=== PATIENT | male | born 1960 | race Asian ===

== ENCOUNTER 2018-06-04 17:17 | Inpatient (IN) | payer OTHER ==
[2018-06-04] MEDS: ONDANSETRON 4 MG INJ IV (21:00)
[2018-06-04] MEDS: HYDROmorphONE 1 MG/ML SYG IV (21:00)
[2018-06-04] MEDS: SOD CHLORIDE 0.9% 1,000 ML IV (21:00)
[2018-06-04 21:20] LABS: ADD MAN DIFF? NO
[2018-06-04 21:21] LABS: BASOPHIL # 0.1 10^3/ul (0.0-0.1); BASOPHILS % 0.9 % (0.0-2.0); EOSINOPHILS # 0.6 10^3/ul (0.0-0.5); EOSINOPHILS % 4.1 % (0.0-7.0); HEMATOCRIT 41.6 % (42.0-52.0); HEMOGLOBIN 13.7 g/dl (14.0-18.0); LYMPHOCYTES # 1.8 10^3/ul (0.8-2.9); LYMPHOCYTES % 11.7 % (15.0-51.0); MEAN CORPUSCULAR HEMOGLOBIN 30.6 pg (29.0-33.0); MEAN CORPUSCULAR HGB CONC 32.9 g/dl (32.0-37.0); MEAN CORPUSCULAR VOLUME 93.1 fl (82.0-101.0); MEAN PLATELET VOLUME 9.6 fl (7.4-10.4); MONOCYTE # 1.2 10^3/ul (0.3-0.9); MONOCYTES % 8.3 % (0.0-11.0); NEUTROPHIL # 11.2 10^3/ul (1.6-7.5); NEUTROPHILS % 74.5 % (39.0-77.0); PLATELET COUNT 276 10^3/UL (140-415); RED BLOOD COUNT 4.47 10^6/ul (4.70-6.10); RED CELL DISTRIBUTION WIDTH 13.4 % (11.5-14.5)
[2018-06-04 21:25] LABS: INR 0.88; PT RATIO 0.9
[2018-06-04 21:26] LABS: PARTIAL THROMBOPLASTIN TIME 29.8 Sec (23.0-35.0)
[2018-06-04 21:28] LABS: ALANINE AMINOTRANSFERASE 9 IU/L (13-69); ALBUMIN 4.3 g/dl (3.3-4.9); ALBUMIN/GLOBULIN RATIO 1.16; ALKALINE PHOSPHATASE 85 IU/L (42-121); ANION GAP 9 (5-13); ASPARTATE AMINO TRANSFERASE 38 IU/L (15-46); BILIRUBIN,INDIRECT 0.2 mg/dl (0-1.1); BILIRUBIN,TOTAL 0.2 mg/dl (0.2-1.3); BLOOD UREA NITROGEN 13 mg/dl (7-20); CALCIUM 9.4 mg/dl (8.4-10.2); CARBON DIOXIDE 30 mmol/L (21-31); CHLORIDE 104 mmol/L (97-110); CREATININE 1.05 mg/dl (0.61-1.24); Estimated GFR > 60 mL/min (>60); GLUCOSE 86 mg/dl (70-220); LIPASE 119 U/L (23-300); POTASSIUM 4.1 mmol/L (3.5-5.1); SODIUM 143 mmol/L (135-144)
[2018-06-04 21:40] LABS: TROPONIN-I < 0.012 ng/ml (0.000-0.120)
[2018-06-04] MEDS: IBUPROFEN 600 MG TAB PO (22:31)
[2018-06-04] MEDS: CEFEPIME 1GM/50 ML (PMX) 50 ML IVPB (22:32)
[2018-06-04] MEDS: HYDROmorphONE 2 MG/ML SYG IV (22:52)
[2018-06-05] MEDS: ONDANSETRON 4 MG INJ IV ×2 (00:53→21:13)
[2018-06-05] MEDS ORDERED: ALBUTEROL/IPRATROPIUM (NEB) 3 ML AMP HHN (01:00)
[2018-06-05] MEDS ORDERED: HYDROCODONE/APAP (5/325) TAB PO (01:00)
[2018-06-05] MEDS ORDERED: ACETAMINOPHEN 325 MG TAB PO (01:00)
[2018-06-05] MEDS ORDERED: NACL 0.9% 3 ML SYG IV (01:00)
[2018-06-05] MEDS: hydrALAzine 20 MG INJ IV (01:48)
[2018-06-05] MEDS: HYDROmorphONE 0.2 MG/ML PCA IV (02:40)
[2018-06-05 07:36] LABS: ADD MAN DIFF? NO
[2018-06-05 07:43] LABS: BASOPHIL # 0.1 10^3/ul (0.0-0.1); BASOPHILS % 0.7 % (0.0-2.0); EOSINOPHILS # 0.1 10^3/ul (0.0-0.5); EOSINOPHILS % 0.4 % (0.0-7.0); HEMOGLOBIN 12.4 g/dl (14.0-18.0); LYMPHOCYTES # 1.3 10^3/ul (0.8-2.9); MEAN CORPUSCULAR HEMOGLOBIN 30.5 pg (29.0-33.0); MEAN CORPUSCULAR HGB CONC 32.6 g/dl (32.0-37.0); MEAN CORPUSCULAR VOLUME 93.4 fl (82.0-101.0); MEAN PLATELET VOLUME 9.4 fl (7.4-10.4); MONOCYTE # 1.1 10^3/ul (0.3-0.9); MONOCYTES % 6.3 % (0.0-11.0); NEUTROPHIL # 15.3 10^3/ul (1.6-7.5); NEUTROPHILS % 85.2 % (39.0-77.0); PLATELET COUNT 265 10^3/UL (140-415); RED BLOOD COUNT 4.07 10^6/ul (4.70-6.10); RED CELL DISTRIBUTION WIDTH 13.2 % (11.5-14.5)
[2018-06-05 08:01] LABS: ALANINE AMINOTRANSFERASE 10 IU/L (13-69); ALBUMIN 3.6 g/dl (3.3-4.9); ALKALINE PHOSPHATASE 74 IU/L (42-121); ANION GAP 6 (5-13); ASPARTATE AMINO TRANSFERASE 30 IU/L (15-46); BILIRUBIN,INDIRECT 0.4 mg/dl (0-1.1); BILIRUBIN,TOTAL 0.4 mg/dl (0.2-1.3); BLOOD UREA NITROGEN 11 mg/dl (7-20); CALCIUM 8.6 mg/dl (8.4-10.2); CARBON DIOXIDE 27 mmol/L (21-31); CHLORIDE 107 mmol/L (97-110); CREATININE 0.78 mg/dl (0.61-1.24); Estimated GFR > 60 mL/min (>60); GLUCOSE 101 mg/dl (70-220); MAGNESIUM 1.9 mg/dl (1.7-2.5); PHOSPHORUS 3.2 mg/dl (2.5-4.9); POTASSIUM 4.5 mmol/L (3.5-5.1); SODIUM 140 mmol/L (135-144); TOTAL PROTEIN 6.6 g/dl (6.1-8.1)
[2018-06-05] MEDS ORDERED: VANCOMYCIN IV PER PHARMACY XX (09:30)
[2018-06-05] MEDS: PIPER-TAZO 3.375 GM IV (PMX) 100 ML IVPB ×3 (11:24→23:44)
[2018-06-05] MEDS: VANCOMYCIN 1 GM 250 ML IVPB (12:10)
[2018-06-06] MEDS: VANCOMYCIN 750 MG (PMX) 250 ML IVPB ×2 (00:50→12:15)
[2018-06-06] MEDS: PIPER-TAZO 3.375 GM IV (PMX) 100 ML IVPB ×4 (05:39→23:53)
[2018-06-06 06:39] LABS: ADD MAN DIFF? NO
[2018-06-06 06:45] LABS: WHITE BLOOD COUNT 16.3 10^3/ul (4.8-10.8)
[2018-06-06 06:45] LABS: BASOPHIL # 0.1 10^3/ul (0.0-0.1); BASOPHILS % 0.8 % (0.0-2.0); EOSINOPHILS # 0.5 10^3/ul (0.0-0.5); EOSINOPHILS % 3.1 % (0.0-7.0); HEMATOCRIT 38.2 % (42.0-52.0); HEMOGLOBIN 12.5 g/dl (14.0-18.0); LYMPHOCYTES # 2.1 10^3/ul (0.8-2.9); LYMPHOCYTES % 13.2 % (15.0-51.0); MEAN CORPUSCULAR HEMOGLOBIN 30.5 pg (29.0-33.0); MEAN CORPUSCULAR HGB CONC 32.7 g/dl (32.0-37.0); MEAN CORPUSCULAR VOLUME 93.2 fl (82.0-101.0); MEAN PLATELET VOLUME 9.5 fl (7.4-10.4); MONOCYTE # 1.1 10^3/ul (0.3-0.9); MONOCYTES % 6.9 % (0.0-11.0); NEUTROPHIL # 12.3 10^3/ul (1.6-7.5); NEUTROPHILS % 75.6 % (39.0-77.0); PLATELET COUNT 271 10^3/UL (140-415); RED CELL DISTRIBUTION WIDTH 13.2 % (11.5-14.5)
[2018-06-06 07:04] LABS: ANION GAP 5 (5-13); BLOOD UREA NITROGEN 8 mg/dl (7-20); CALCIUM 8.5 mg/dl (8.4-10.2); CARBON DIOXIDE 31 mmol/L (21-31); CHLORIDE 106 mmol/L (97-110); CREATININE 0.84 mg/dl (0.61-1.24); Estimated GFR > 60 mL/min (>60); GLUCOSE 99 mg/dl (70-220); PHOSPHORUS 3.3 mg/dl (2.5-4.9); POTASSIUM 4.4 mmol/L (3.5-5.1); SODIUM 142 mmol/L (135-144)
[2018-06-06] MEDS: BARIUM SULF 2% 450 ML BTL (BERRY SMOOTHIE) PO (13:59)
[2018-06-06] MEDS: SOD CHLORIDE 0.9% 100 ML (15:31)
[2018-06-06] MEDS: IOHEXOL 300MG/ML 150 ML BTL (15:37)
[2018-06-06] MEDS: AMLODIPINE 5 MG TAB PO (17:30)
[2018-06-06] MEDS: hydrALAzine 20 MG INJ IV (18:32)
[2018-06-07 01:15] LABS: VANCOMYCIN,TROUGH 8.7 ug/ml (10.0-20.0)
[2018-06-07] MEDS: VANCOMYCIN 1 GM 250 ML IVPB (01:26)
[2018-06-07] MEDS: PIPER-TAZO 3.375 GM IV (PMX) 100 ML IVPB ×2 (05:36→11:49)
[2018-06-07] MEDS: AMLODIPINE 5 MG TAB PO (08:48)
[2018-06-07] MEDS: HYDROmorphONE 0.2 MG/ML PCA IV (10:21)
[2018-06-07] MEDS: hydrALAzine 20 MG INJ IV (21:15)
[2018-06-07] MEDS: AMLODIPINE 10 MG TAB PO (23:09)
[2018-06-08] MEDS: AMLODIPINE 5 MG TAB PO (09:57)
[2018-06-08] MEDS: LIDOCAINE 1% (MPF) 5 ML VIAL (19:28)
[2018-06-09] MEDS: HYDROmorphONE 0.2 MG/ML PCA IV (02:37)
[2018-06-09] MEDS: AMLODIPINE 5 MG TAB PO (08:50)
[2018-06-10] MEDS: HYDROCODONE/APAP (5/325) TAB PO ×2 (09:09→19:40)
[2018-06-10] MEDS: AMLODIPINE 5 MG TAB PO (09:09)
[2018-06-10] MEDS: morphine (ER) 15 MG TAB PO ×2 (15:48→21:59)
[2018-06-10] MEDS: IBUPROFEN 400 MG TAB PO (21:59)
[2018-06-11] MEDS: oxyCODONE 5 MG TAB PO (01:27)
[2018-06-11] MEDS: morphine (ER) 15 MG TAB PO (05:27)
[2018-06-11] MEDS: HYDROCODONE/APAP (5/325) TAB PO ×2 (07:03→18:19)
[2018-06-11] MEDS: IBUPROFEN 400 MG TAB PO ×3 (09:23→22:46)
[2018-06-11] MEDS: AMLODIPINE 5 MG TAB PO (09:24)
[2018-06-11] MEDS: morphine (ER) 30 MG TAB PO ×3 (12:44→22:46)
[2018-06-11] MEDS: hydrALAzine 20 MG INJ IV (21:46)
[2018-06-12] MEDS: morphine (ER) 30 MG TAB PO ×3 (05:59→22:13)
[2018-06-12] MEDS: AMLODIPINE 5 MG TAB PO (08:31)
[2018-06-12] MEDS: IBUPROFEN 400 MG TAB PO ×3 (08:31→20:17)
[2018-06-12] MEDS ORDERED: HYDROmorphONE 2 MG TAB PO (14:30)
[2018-06-12] MEDS: hydrALAzine 20 MG INJ IV ×2 (15:26→20:18)
[2018-06-13 05:55] LABS: ADD MAN DIFF? NO
[2018-06-13] MEDS: morphine (ER) 30 MG TAB PO ×3 (06:00→21:04)
[2018-06-13 06:06] LABS: BASOPHIL # 0.1 10^3/ul (0.0-0.1); BASOPHILS % 0.9 % (0.0-2.0); EOSINOPHILS # 0.5 10^3/ul (0.0-0.5); EOSINOPHILS % 3.1 % (0.0-7.0); HEMATOCRIT 37.9 % (42.0-52.0); HEMOGLOBIN 12.7 g/dl (14.0-18.0); LYMPHOCYTES # 1.4 10^3/ul (0.8-2.9); LYMPHOCYTES % 9.5 % (15.0-51.0); MEAN CORPUSCULAR HEMOGLOBIN 30.7 pg (29.0-33.0); MEAN CORPUSCULAR HGB CONC 33.5 g/dl (32.0-37.0); MEAN CORPUSCULAR VOLUME 91.5 fl (82.0-101.0); MEAN PLATELET VOLUME 8.9 fl (7.4-10.4); MONOCYTE # 1.4 10^3/ul (0.3-0.9); MONOCYTES % 9.3 % (0.0-11.0); NEUTROPHIL # 11.7 10^3/ul (1.6-7.5); NEUTROPHILS % 76.8 % (39.0-77.0); PLATELET COUNT 316 10^3/UL (140-415); RED BLOOD COUNT 4.14 10^6/ul (4.70-6.10); RED CELL DISTRIBUTION WIDTH 12.9 % (11.5-14.5)
[2018-06-13 06:06] LABS: WHITE BLOOD COUNT 15.2 10^3/ul (4.8-10.8)
[2018-06-13 06:19] LABS: ANION GAP 5 (5-13); BLOOD UREA NITROGEN 19 mg/dl (7-20); CALCIUM 9.3 mg/dl (8.4-10.2); CARBON DIOXIDE 31 mmol/L (21-31); CHLORIDE 106 mmol/L (97-110); CREATININE 0.87 mg/dl (0.61-1.24); Estimated GFR > 60 mL/min (>60); GLUCOSE 105 mg/dl (70-220); POTASSIUM 4.7 mmol/L (3.5-5.1); SODIUM 142 mmol/L (135-144)
[2018-06-13] MEDS: IBUPROFEN 400 MG TAB PO ×3 (08:59→21:03)
[2018-06-13] MEDS: AMLODIPINE 5 MG TAB PO (08:59)
[2018-06-13] MEDS: CEFAZOLIN 1 GM/50 ML (PMX) 50 ML IVPB (09:38)
[2018-06-13] MEDS: SOD CHLORIDE 0.9% 500 ML (09:46)
[2018-06-13] MEDS: FENTAnyl 50 MCG/ML VIAL (10:40)
[2018-06-13] MEDS: LIDOCAINE 1%/EPI (1:100,000) (MDV) 20 ML (10:41)
[2018-06-13] MEDS: MIDAZOLAM 1 MG/ML 2 ML INJ (10:42)
[2018-06-13] MEDS: HEPARIN 1000 UNITS/ML 10 ML INJ (10:55)
[2018-06-13] MEDS: POLYMYXIN/BACITRACIN 1L IRRIG IRR (10:55)
[2018-06-13] MEDS: POLYETHYLENE GLYCOL 17 GM PACKET PO (14:19)
[2018-06-14] MEDS: morphine (ER) 30 MG TAB PO ×3 (05:53→21:11)
[2018-06-14] MEDS: IBUPROFEN 400 MG TAB PO ×3 (08:09→21:10)
[2018-06-14] MEDS: AMLODIPINE 5 MG TAB PO (08:09)
[2018-06-15] MEDS: morphine (ER) 30 MG TAB PO ×3 (05:30→21:30)
[2018-06-15] MEDS: IBUPROFEN 400 MG TAB PO ×3 (08:19→20:59)
[2018-06-15] MEDS: AMLODIPINE 5 MG TAB PO (08:20)
[2018-06-16] MEDS: morphine (ER) 30 MG TAB PO ×3 (05:30→21:59)
[2018-06-16] MEDS: IBUPROFEN 400 MG TAB PO ×3 (10:09→20:25)
[2018-06-16] MEDS: AMLODIPINE 5 MG TAB PO (10:10)
[2018-06-16] MEDS: hydrALAzine 20 MG INJ IV (20:26)
[2018-06-17] MEDS: morphine (ER) 30 MG TAB PO ×3 (05:54→21:59)
[2018-06-17] MEDS: IBUPROFEN 400 MG TAB PO ×3 (09:26→20:23)
[2018-06-17] MEDS: AMLODIPINE 5 MG TAB PO (09:26)
[2018-06-17 11:32] LABS: ADD MAN DIFF? NO
[2018-06-17 11:35] LABS: BASOPHIL # 0.1 10^3/ul (0.0-0.1); BASOPHILS % 0.8 % (0.0-2.0); EOSINOPHILS # 0.2 10^3/ul (0.0-0.5); EOSINOPHILS % 1.4 % (0.0-7.0); HEMATOCRIT 37.5 % (42.0-52.0); HEMOGLOBIN 12.5 g/dl (14.0-18.0); LYMPHOCYTES # 1.5 10^3/ul (0.8-2.9); MEAN CORPUSCULAR HGB CONC 33.3 g/dl (32.0-37.0); MEAN CORPUSCULAR VOLUME 89.9 fl (82.0-101.0); MEAN PLATELET VOLUME 8.8 fl (7.4-10.4); MONOCYTE # 1.3 10^3/ul (0.3-0.9); MONOCYTES % 7.7 % (0.0-11.0); NEUTROPHILS % 80.7 % (39.0-77.0); PLATELET COUNT 329 10^3/UL (140-415); RED BLOOD COUNT 4.17 10^6/ul (4.70-6.10); RED CELL DISTRIBUTION WIDTH 12.8 % (11.5-14.5)
[2018-06-17 11:35] LABS: WHITE BLOOD COUNT 16.1 10^3/ul (4.8-10.8)
[2018-06-17 12:04] LABS: ALANINE AMINOTRANSFERASE 10 IU/L (13-69); ALBUMIN 3.9 g/dl (3.3-4.9); ALBUMIN/GLOBULIN RATIO 1.18; ALKALINE PHOSPHATASE 91 IU/L (42-121); ANION GAP 9 (5-13); ASPARTATE AMINO TRANSFERASE 34 IU/L (15-46); BILIRUBIN,INDIRECT 0.2 mg/dl (0-1.1); BILIRUBIN,TOTAL 0.2 mg/dl (0.2-1.3); BLOOD UREA NITROGEN 17 mg/dl (7-20); CARBON DIOXIDE 30 mmol/L (21-31); CHLORIDE 101 mmol/L (97-110); CREATININE 0.82 mg/dl (0.61-1.24); Estimated GFR > 60 mL/min (>60); POTASSIUM 4.4 mmol/L (3.5-5.1); SODIUM 140 mmol/L (135-144); TOTAL PROTEIN 7.2 g/dl (6.1-8.1)
[2018-06-17 12:27] LABS: CALCIUM 9.4 mg/dl (8.4-10.2); GLUCOSE 124 mg/dl (70-220)
[2018-06-17] MEDS: SOD CHLORIDE 0.45% 1,000 ML IV (13:05)
[2018-06-17] MEDS ORDERED: APREPITANT 80 MG CAPSULE PO (15:00)
[2018-06-17] MEDS ORDERED: DEXAMETHASONE 4 MG/ML 20 MG in SOD CHLORIDE 0.9% 50 ML IVPB (15:00)
[2018-06-17] MEDS: ONDANSETRON INJ 16 MG in SOD CHLORIDE 0.9% 50 ML IVPB (16:38)
[2018-06-17] MEDS: APREPITANT 125 MG PO (16:39)
[2018-06-17] MEDS ORDERED: FILGRASTIM-AAFI 300 MCG/0.5 ML SYRINGE SC (17:00)
[2018-06-17] MEDS: SOD CHLORIDE 0.9% IV ×3 (17:16→18:03)
[2018-06-17] MEDS: DOXORUBICIN IV (17:16)
[2018-06-17] MEDS ORDERED: DACARBAZINE IV (18:00)
[2018-06-17] MEDS ORDERED: DEXTROSE 5% IV (18:00)
[2018-06-17] MEDS: IFOSFAMIDE IV (18:02)
[2018-06-17] MEDS: MESNA IV (18:03)
[2018-06-17] MEDS ORDERED: MEPERIDINE 50 MG INJ IV (18:30)
[2018-06-17] MEDS ORDERED: DIPHENHYDRAMINE 50 MG INJ IV (18:30)
[2018-06-17] MEDS: DACARBAZINE IV (18:37)
[2018-06-17] MEDS: DEXTROSE 5% IV (18:37)
[2018-06-17 20:46] LABS: ADD UMIC NO; UR ASCORBIC ACID NEGATIVE (NEGATIVE); UR BILIRUBIN (Dip) NEGATIVE (NEGATIVE); UR BLOOD (Dip) NEGATIVE (NEGATIVE); UR CLARITY CLEAR (CLEAR); UR COLOR STRAW (YELLOW); UR GLUCOSE (Dip) NEGATIVE (NEGATIVE); UR KETONES (Dip) NEGATIVE (NEGATIVE); UR LEUKOCYTE ESTERASE (Dip) NEGATIVE Leu/ul (NEGATIVE); UR NITRITE (Dip) NEGATIVE (NEGATIVE); UR SPECIFIC GRAVITY (Dip) 1.008 (1.003-1.030); UR TOTAL PROTEIN (Dip) NEGATIVE (NEGATIVE); UR UROBILINOGEN (Dip) NEGATIVE (NEGATIVE)
[2018-06-18] MEDS: morphine (ER) 30 MG TAB PO ×3 (06:38→22:36)
[2018-06-18] MEDS: SOD CHLORIDE 0.45% 1,000 ML IV (06:38)
[2018-06-18] MEDS: ONDANSETRON 4 MG INJ IV (09:20)
[2018-06-18] MEDS: AMLODIPINE 5 MG TAB PO (09:22)
[2018-06-18] MEDS: IBUPROFEN 400 MG TAB PO ×2 (09:22→13:59)
[2018-06-18] MEDS ORDERED: APREPITANT 80 MG CAPSULE PO (15:00)
[2018-06-18] MEDS ORDERED: IBUPROFEN 400 MG TAB PO ×2 (19:30)
[2018-06-18] MEDS: ONDANSETRON INJ 16 MG in SOD CHLORIDE 0.9% 50 ML IVPB (20:49)
[2018-06-18] MEDS: hydrALAzine 20 MG INJ IV (21:01)
[2018-06-18] MEDS: PROCHLORPERAZINE 10 MG INJ IV (21:37)
[2018-06-18] MEDS: METOCLOPRAMIDE 10 MG INJ IV (22:37)
[2018-06-18] MEDS: FUROSEMIDE 20 MG INJ IV (22:37)
[2018-06-18] MEDS: LORAZEPAM 2 MG INJ IV (22:37)
[2018-06-18] MEDS: MESNA IV (23:37)
[2018-06-18] MEDS: SOD CHLORIDE 0.9% IV ×3 (23:37→23:39)
[2018-06-18] MEDS: DOXORUBICIN IV (23:38)
[2018-06-18] MEDS: DEXTROSE 5% IV (23:39)
[2018-06-18] MEDS: DACARBAZINE IV (23:39)
[2018-06-18] MEDS: IFOSFAMIDE IV (23:39)
[2018-06-18] MEDS: APREPITANT 80 MG CAPSULE PO (23:48)
[2018-06-19] MEDS: SOD CHLORIDE 0.45% 1,000 ML IV ×2 (00:37→04:29)
[2018-06-19 05:34] LABS: ADD MAN DIFF? NO
[2018-06-19] MEDS: morphine (ER) 30 MG TAB PO ×3 (05:44→23:46)
[2018-06-19 06:12] LABS: ABNORMAL IP MESSAGE 1; BASOPHIL # 0.1 10^3/ul (0.0-0.1); BASOPHILS % 0.5 % (0.0-2.0); EOSINOPHILS # 0.1 10^3/ul (0.0-0.5); EOSINOPHILS % 0.4 % (0.0-7.0); HEMATOCRIT 36.9 % (42.0-52.0); HEMOGLOBIN 12.4 g/dl (14.0-18.0); LYMPHOCYTES # 1.4 10^3/ul (0.8-2.9); MEAN CORPUSCULAR HGB CONC 33.6 g/dl (32.0-37.0); MEAN CORPUSCULAR VOLUME 89.1 fl (82.0-101.0); MEAN PLATELET VOLUME 10.3 fl (7.4-10.4); MONOCYTE # 1.7 10^3/ul (0.3-0.9); MONOCYTES % 8.7 % (0.0-11.0); NEUTROPHIL # 16.6 10^3/ul (1.6-7.5); NEUTROPHILS % 82.8 % (39.0-77.0); PLATELET COUNT 281 10^3/UL (140-415); POSITIVE DIFF @See below; RED BLOOD COUNT 4.14 10^6/ul (4.70-6.10); RED CELL DISTRIBUTION WIDTH 12.4 % (11.5-14.5)
[2018-06-19 06:12] LABS: WHITE BLOOD COUNT 20.1 10^3/ul (4.8-10.8)
[2018-06-19 07:44] LABS: ALBUMIN 3.6 g/dl (3.3-4.9); ALBUMIN/GLOBULIN RATIO 1.09; ALKALINE PHOSPHATASE 80 IU/L (42-121); ANION GAP 10 (5-13); ASPARTATE AMINO TRANSFERASE 42 IU/L (15-46); BILIRUBIN,INDIRECT 0.4 mg/dl (0-1.1); BILIRUBIN,TOTAL 0.4 mg/dl (0.2-1.3); BLOOD UREA NITROGEN 16 mg/dl (7-20); CALCIUM 8.8 mg/dl (8.4-10.2); CARBON DIOXIDE 23 mmol/L (21-31); CHLORIDE 104 mmol/L (97-110); CREATININE 0.74 mg/dl (0.61-1.24); Estimated GFR > 60 mL/min (>60); GLUCOSE 94 mg/dl (70-220); POTASSIUM 4.4 mmol/L (3.5-5.1); SODIUM 137 mmol/L (135-144); TOTAL PROTEIN 6.9 g/dl (6.1-8.1)
[2018-06-19 07:53] LABS: ALANINE AMINOTRANSFERASE 9 IU/L (13-69)
[2018-06-19] MEDS: AMLODIPINE 5 MG TAB PO (09:25)
[2018-06-19 12:57] LABS: ADD UMIC NO; UR ASCORBIC ACID 20 mg/dL (NEGATIVE); UR BILIRUBIN (Dip) NEGATIVE (NEGATIVE); UR BLOOD (Dip) NEGATIVE (NEGATIVE); UR CLARITY CLEAR (CLEAR); UR COLOR STRAW (YELLOW); UR GLUCOSE (Dip) NEGATIVE (NEGATIVE); UR KETONES (Dip) 1+ mg/dL (NEGATIVE); UR LEUKOCYTE ESTERASE (Dip) NEGATIVE Leu/ul (NEGATIVE); UR NITRITE (Dip) NEGATIVE (NEGATIVE); UR SPECIFIC GRAVITY (Dip) 1.009 (1.003-1.030); UR TOTAL PROTEIN (Dip) NEGATIVE (NEGATIVE); UR UROBILINOGEN (Dip) NEGATIVE (NEGATIVE)
[2018-06-19 13:19] LABS: UR BACTERIA FEW /HPF (NONE SEEN); UR RBC 3 /HPF (0-5); UR WBC 49 /HPF (0-5)
[2018-06-19] MEDS: PROCHLORPERAZINE 10 MG INJ IV ×2 (14:12→21:22)
[2018-06-19] MEDS: ONDANSETRON 4 MG INJ IV (21:45)
[2018-06-19] MEDS: hydrALAzine 20 MG INJ IV (21:45)
[2018-06-19] MEDS: ONDANSETRON INJ 16 MG in SOD CHLORIDE 0.9% 50 ML IVPB (23:33)
[2018-06-19] MEDS: APREPITANT 80 MG CAPSULE PO (23:46)
[2018-06-20] MEDS: SOD CHLORIDE 0.9% IV ×3 (00:56→00:59)
[2018-06-20] MEDS: MESNA IV (00:56)
[2018-06-20] MEDS: DACARBAZINE IV (00:57)
[2018-06-20] MEDS: DEXTROSE 5% IV (00:57)
[2018-06-20] MEDS: DOXORUBICIN IV (00:58)
[2018-06-20] MEDS: IFOSFAMIDE IV (00:59)
[2018-06-20] MEDS: SOD CHLORIDE 0.45% 1,000 ML IV (02:46)
[2018-06-20 05:05] LABS: ADD MAN DIFF? NO
[2018-06-20 05:15] LABS: WHITE BLOOD COUNT 16.7 10^3/ul (4.8-10.8)
[2018-06-20 05:15] LABS: HEMATOCRIT 35.8 % (42.0-52.0); MEAN CORPUSCULAR HEMOGLOBIN 30.3 pg (29.0-33.0); MEAN CORPUSCULAR HGB CONC 33.5 g/dl (32.0-37.0); MEAN CORPUSCULAR VOLUME 90.4 fl (82.0-101.0); MEAN PLATELET VOLUME 9.1 fl (7.4-10.4); PLATELET COUNT 309 10^3/UL (140-415); RED BLOOD COUNT 3.96 10^6/ul (4.70-6.10); RED CELL DISTRIBUTION WIDTH 12.5 % (11.5-14.5)
[2018-06-20 05:16] LABS: BASOPHIL # 0.1 10^3/ul (0.0-0.1); BASOPHILS % 0.6 % (0.0-2.0); EOSINOPHILS # 0.1 10^3/ul (0.0-0.5); EOSINOPHILS % 0.4 % (0.0-7.0); LYMPHOCYTES # 1.4 10^3/ul (0.8-2.9); LYMPHOCYTES % 8.6 % (15.0-51.0); MONOCYTE # 1.4 10^3/ul (0.3-0.9); MONOCYTES % 8.4 % (0.0-11.0); NEUTROPHIL # 13.6 10^3/ul (1.6-7.5); NEUTROPHILS % 81.5 % (39.0-77.0)
[2018-06-20 05:30] LABS: ALANINE AMINOTRANSFERASE 13 IU/L (13-69); ALBUMIN 3.5 g/dl (3.3-4.9); ALBUMIN/GLOBULIN RATIO 1.16; ALKALINE PHOSPHATASE 72 IU/L (42-121); ANION GAP 8 (5-13); ASPARTATE AMINO TRANSFERASE 31 IU/L (15-46); BILIRUBIN,INDIRECT 0.5 mg/dl (0-1.1); BILIRUBIN,TOTAL 0.5 mg/dl (0.2-1.3); BLOOD UREA NITROGEN 13 mg/dl (7-20); CALCIUM 8.8 mg/dl (8.4-10.2); CARBON DIOXIDE 27 mmol/L (21-31); CHLORIDE 106 mmol/L (97-110); CREATININE 0.75 mg/dl (0.61-1.24); Estimated GFR > 60 mL/min (>60); GLUCOSE 110 mg/dl (70-220); POTASSIUM 4.1 mmol/L (3.5-5.1); SODIUM 141 mmol/L (135-144); TOTAL PROTEIN 6.5 g/dl (6.1-8.1)
[2018-06-20 06:24] LABS: ADD UMIC NO; UR ASCORBIC ACID 40 mg/dL (NEGATIVE); UR BILIRUBIN (Dip) NEGATIVE (NEGATIVE); UR BLOOD (Dip) NEGATIVE (NEGATIVE); UR CLARITY CLEAR (CLEAR); UR COLOR STRAW (YELLOW); UR GLUCOSE (Dip) NEGATIVE (NEGATIVE); UR KETONES (Dip) 1+ mg/dL (NEGATIVE); UR LEUKOCYTE ESTERASE (Dip) NEGATIVE Leu/ul (NEGATIVE); UR NITRITE (Dip) NEGATIVE (NEGATIVE); UR TOTAL PROTEIN (Dip) NEGATIVE (NEGATIVE); UR UROBILINOGEN (Dip) NEGATIVE (NEGATIVE)
[2018-06-20] MEDS: morphine (ER) 30 MG TAB PO ×3 (06:34→21:22)
[2018-06-20] MEDS: PROCHLORPERAZINE 10 MG INJ IV ×2 (06:36→18:40)
[2018-06-20] MEDS: AMLODIPINE 5 MG TAB PO (08:32)
[2018-06-20] MEDS: POLYETHYLENE GLYCOL 17 GM PACKET PO (08:32)
[2018-06-20] MEDS: FUROSEMIDE 20 MG INJ IV (08:33)
[2018-06-20] MEDS: ONDANSETRON 4 MG INJ IV (09:49)
[2018-06-20] MEDS: hydrALAzine 20 MG INJ IV ×2 (15:54→20:03)
[2018-06-20] MEDS: DOCUSATE SODIUM 100 MG CAP PO (20:03)
[2018-06-21] MEDS: ONDANSETRON INJ 16 MG in SOD CHLORIDE 0.9% 50 ML IVPB (00:45)
[2018-06-21] MEDS: SOD CHLORIDE 0.9% IV (00:51)
[2018-06-21] MEDS: MESNA IV (00:51)
[2018-06-21] MEDS: PROCHLORPERAZINE 10 MG INJ IV ×3 (02:49→21:29)
[2018-06-21] MEDS: SOD CHLORIDE 0.45% 1,000 ML IV (04:53)
[2018-06-21] MEDS: morphine (ER) 30 MG TAB PO ×3 (05:02→21:31)
[2018-06-21 05:19] LABS: ADD MAN DIFF? NO
[2018-06-21 05:26] LABS: BASOPHIL # 0.1 10^3/ul (0.0-0.1); BASOPHILS % 0.4 % (0.0-2.0); EOSINOPHILS % 0.1 % (0.0-7.0); HEMATOCRIT 33.8 % (42.0-52.0); HEMOGLOBIN 11.4 g/dl (14.0-18.0); LYMPHOCYTES # 0.7 10^3/ul (0.8-2.9); LYMPHOCYTES % 4.1 % (15.0-51.0); MEAN CORPUSCULAR HEMOGLOBIN 29.9 pg (29.0-33.0); MEAN CORPUSCULAR HGB CONC 33.7 g/dl (32.0-37.0); MEAN CORPUSCULAR VOLUME 88.7 fl (82.0-101.0); MEAN PLATELET VOLUME 9.2 fl (7.4-10.4); MONOCYTE # 1.2 10^3/ul (0.3-0.9); MONOCYTES % 6.8 % (0.0-11.0); NEUTROPHIL # 14.9 10^3/ul (1.6-7.5); PLATELET COUNT 282 10^3/UL (140-415); RED BLOOD COUNT 3.81 10^6/ul (4.70-6.10); RED CELL DISTRIBUTION WIDTH 12.5 % (11.5-14.5)
[2018-06-21 05:54] LABS: ALANINE AMINOTRANSFERASE 25 IU/L (13-69); ALBUMIN 3.1 g/dl (3.3-4.9); ALBUMIN/GLOBULIN RATIO 0.93; ALKALINE PHOSPHATASE 71 IU/L (42-121); ANION GAP 6 (5-13); ASPARTATE AMINO TRANSFERASE 34 IU/L (15-46); BILIRUBIN,INDIRECT 0.6 mg/dl (0-1.1); BILIRUBIN,TOTAL 0.6 mg/dl (0.2-1.3); BLOOD UREA NITROGEN 12 mg/dl (7-20); CALCIUM 8.6 mg/dl (8.4-10.2); CARBON DIOXIDE 26 mmol/L (21-31); CHLORIDE 107 mmol/L (97-110); CREATININE 0.69 mg/dl (0.61-1.24); Estimated GFR > 60 mL/min (>60); GLUCOSE 105 mg/dl (70-220); POTASSIUM 4.1 mmol/L (3.5-5.1); SODIUM 139 mmol/L (135-144); TOTAL PROTEIN 6.4 g/dl (6.1-8.1)
[2018-06-21 06:11] LABS: ADD UMIC NO; UR ASCORBIC ACID 20 mg/dL (NEGATIVE); UR BILIRUBIN (Dip) NEGATIVE (NEGATIVE); UR BLOOD (Dip) NEGATIVE (NEGATIVE); UR CLARITY CLEAR (CLEAR); UR COLOR STRAW (YELLOW); UR GLUCOSE (Dip) NEGATIVE (NEGATIVE); UR KETONES (Dip) 1+ mg/dL (NEGATIVE); UR LEUKOCYTE ESTERASE (Dip) NEGATIVE Leu/ul (NEGATIVE); UR NITRITE (Dip) NEGATIVE (NEGATIVE); UR SPECIFIC GRAVITY (Dip) 1.011 (1.003-1.030); UR TOTAL PROTEIN (Dip) NEGATIVE (NEGATIVE); UR UROBILINOGEN (Dip) NEGATIVE (NEGATIVE)
[2018-06-21] MEDS: AMLODIPINE 5 MG TAB PO (08:50)
[2018-06-21] MEDS: DOCUSATE SODIUM 100 MG CAP PO ×2 (08:50→21:29)
[2018-06-21] MEDS: FUROSEMIDE 20 MG INJ IV (08:52)
[2018-06-21] MEDS ORDERED: FILGRASTIM-AAFI 300 MCG/0.5 ML SYRINGE SC (17:00)
[2018-06-21] MEDS: BISACODYL (EC) 5 MG TAB PO (17:32)
[2018-06-21] MEDS: FILGRASTIM-AAFI 300 MCG/0.5 ML SYRINGE SC (18:56)
[2018-06-21] MEDS: POLYETHYLENE GLYCOL 17 GM PACKET PO (21:29)
[2018-06-21] MEDS: ONDANSETRON 4 MG INJ IV (23:43)
[2018-06-22 05:32] LABS: ABNORMAL IP MESSAGE 1; HEMATOCRIT 32.1 % (42.0-52.0); HEMOGLOBIN 10.5 g/dl (14.0-18.0); MEAN CORPUSCULAR HEMOGLOBIN 29.7 pg (29.0-33.0); MEAN CORPUSCULAR HGB CONC 32.7 g/dl (32.0-37.0); MEAN CORPUSCULAR VOLUME 90.7 fl (82.0-101.0); MEAN PLATELET VOLUME 9.7 fl (7.4-10.4); PLATELET COUNT 277 10^3/UL (140-415); POSITIVE DIFF @See below; RED BLOOD COUNT 3.54 10^6/ul (4.70-6.10); RED CELL DISTRIBUTION WIDTH 12.3 % (11.5-14.5)
[2018-06-22 05:32] LABS: WHITE BLOOD COUNT 50.7 10^3/ul (4.8-10.8)
[2018-06-22 06:00] LABS: ADD MAN DIFF? YES
[2018-06-22] MEDS: ONDANSETRON 4 MG INJ IV ×3 (06:18→17:40)
[2018-06-22] MEDS: morphine (ER) 30 MG TAB PO ×3 (06:19→22:17)
[2018-06-22 06:27] LABS: ALANINE AMINOTRANSFERASE 30 IU/L (13-69); ALBUMIN 3.2 g/dl (3.3-4.9); ALKALINE PHOSPHATASE 84 IU/L (42-121); ANION GAP 6 (5-13); ASPARTATE AMINO TRANSFERASE 45 IU/L (15-46); BILIRUBIN,INDIRECT 0.7 mg/dl (0-1.1); BILIRUBIN,TOTAL 0.7 mg/dl (0.2-1.3); BLOOD UREA NITROGEN 15 mg/dl (7-20); CALCIUM 8.5 mg/dl (8.4-10.2); CARBON DIOXIDE 25 mmol/L (21-31); CHLORIDE 105 mmol/L (97-110); CREATININE 0.61 mg/dl (0.61-1.24); Estimated GFR > 60 mL/min (>60); GLUCOSE 95 mg/dl (70-220); POTASSIUM 3.7 mmol/L (3.5-5.1); SODIUM 136 mmol/L (135-144); TOTAL PROTEIN 6.4 g/dl (6.1-8.1)
[2018-06-22 07:18] LABS: ADD UMIC YES; UR ASCORBIC ACID 40 mg/dL (NEGATIVE); UR BILIRUBIN (Dip) NEGATIVE (NEGATIVE); UR BLOOD (Dip) NEGATIVE (NEGATIVE); UR CLARITY CLEAR (CLEAR); UR COLOR YELLOW (YELLOW); UR GLUCOSE (Dip) 1+ mg/dL (NEGATIVE); UR KETONES (Dip) 1+ mg/dL (NEGATIVE); UR LEUKOCYTE ESTERASE (Dip) NEGATIVE Leu/ul (NEGATIVE); UR NITRITE (Dip) NEGATIVE (NEGATIVE); UR RBC 1 /HPF (0-5); UR SPECIFIC GRAVITY (Dip) 1.016 (1.003-1.030); UR TOTAL PROTEIN (Dip) 1+ mg/dl (NEGATIVE); UR UROBILINOGEN (Dip) NEGATIVE (NEGATIVE); UR WBC 2 /HPF (0-5)
[2018-06-22] MEDS: DOCUSATE SODIUM 100 MG CAP PO ×2 (08:30→22:16)
[2018-06-22] MEDS: BISACODYL (EC) 5 MG TAB PO (08:30)
[2018-06-22] MEDS: AMLODIPINE 5 MG TAB PO (08:32)
[2018-06-22] MEDS: FUROSEMIDE 20 MG INJ IV (08:34)
[2018-06-22 11:05] LABS: ANISOCYTOSIS 1+ (0-0); BAND NEUTROPHILS #M 5.5 10^3/ul (0.0-0.6); BAND NEUTROPHILS % (M) 11 % (0-4); BURR CELLS 2+ (0-0); PLATELET ESTIMATE NORMAL; POIKILOCYTOSIS 3+ (0-0); POLYCHROMASIA 1+ (0-0); SEG NEUT #M 47.9 10^3/ul (1.6-7.5); SEGMENTED NEUTROPHILS (M) % 89 % (39-77); SMUDGE%M 2 % (0-0)
[2018-06-22] MEDS: PROCHLORPERAZINE 10 MG INJ IV (19:42)
[2018-06-23] MEDS: PROCHLORPERAZINE 10 MG INJ IV ×2 (02:25→21:47)
[2018-06-23 05:52] LABS: ADD MAN DIFF? NO
[2018-06-23 06:00] LABS: WHITE BLOOD COUNT 25.9 10^3/ul (4.8-10.8)
[2018-06-23 06:00] LABS: ABNORMAL IP MESSAGE 1; BASOPHIL # 0.2 10^3/ul (0.0-0.1); BASOPHILS % 0.8 % (0.0-2.0); EOSINOPHILS # 0.1 10^3/ul (0.0-0.5); EOSINOPHILS % 0.2 % (0.0-7.0); HEMATOCRIT 31.9 % (42.0-52.0); HEMOGLOBIN 10.6 g/dl (14.0-18.0); LYMPHOCYTES # 0.8 10^3/ul (0.8-2.9); LYMPHOCYTES % 3.1 % (15.0-51.0); MEAN CORPUSCULAR HEMOGLOBIN 29.9 pg (29.0-33.0); MEAN CORPUSCULAR HGB CONC 33.2 g/dl (32.0-37.0); MEAN CORPUSCULAR VOLUME 90.1 fl (82.0-101.0); MEAN PLATELET VOLUME 9.5 fl (7.4-10.4); MONOCYTE # 0.3 10^3/ul (0.3-0.9); MONOCYTES % 1.3 % (0.0-11.0); NEUTROPHIL # 23.6 10^3/ul (1.6-7.5); NEUTROPHILS % 90.9 % (39.0-77.0); PLATELET COUNT 267 10^3/UL (140-415); POSITIVE DIFF @See below; RED BLOOD COUNT 3.54 10^6/ul (4.70-6.10); RED CELL DISTRIBUTION WIDTH 12.5 % (11.5-14.5)
[2018-06-23] MEDS: morphine (ER) 30 MG TAB PO ×3 (06:12→21:48)
[2018-06-23 06:38] LABS: ALANINE AMINOTRANSFERASE 50 IU/L (13-69); ALBUMIN 3.3 g/dl (3.3-4.9); ALBUMIN/GLOBULIN RATIO 1.03; ALKALINE PHOSPHATASE 87 IU/L (42-121); ANION GAP 6 (5-13); ASPARTATE AMINO TRANSFERASE 65 IU/L (15-46); BILIRUBIN,INDIRECT 0.2 mg/dl (0-1.1); BILIRUBIN,TOTAL 0.2 mg/dl (0.2-1.3); BLOOD UREA NITROGEN 21 mg/dl (7-20); CALCIUM 8.3 mg/dl (8.4-10.2); CARBON DIOXIDE 28 mmol/L (21-31); CHLORIDE 104 mmol/L (97-110); CREATININE 0.69 mg/dl (0.61-1.24); Estimated GFR > 60 mL/min (>60); GLUCOSE 96 mg/dl (70-220); POTASSIUM 3.5 mmol/L (3.5-5.1); SODIUM 138 mmol/L (135-144); TOTAL PROTEIN 6.5 g/dl (6.1-8.1)
[2018-06-23 06:40] LABS: MAGNESIUM 2.6 mg/dl (1.7-2.5)
[2018-06-23] MEDS: ONDANSETRON 4 MG INJ IV ×3 (08:10→20:07)
[2018-06-23] MEDS: DOCUSATE SODIUM 100 MG CAP PO ×2 (08:11→20:07)
[2018-06-23] MEDS: AMLODIPINE 5 MG TAB PO (08:11)
[2018-06-23] MEDS: BISACODYL (EC) 5 MG TAB PO (08:11)
[2018-06-23] MEDS: FUROSEMIDE 20 MG INJ IV (08:12)
[2018-06-23] MEDS: FILGRASTIM-AAFI 300 MCG/0.5 ML SYRINGE SC (10:43)
[2018-06-23 12:53] LABS: ADD UMIC NO; UR ASCORBIC ACID NEGATIVE (NEGATIVE); UR BILIRUBIN (Dip) NEGATIVE (NEGATIVE); UR BLOOD (Dip) NEGATIVE (NEGATIVE); UR CLARITY CLEAR (CLEAR); UR COLOR STRAW (YELLOW); UR GLUCOSE (Dip) NEGATIVE (NEGATIVE); UR KETONES (Dip) TRACE mg/dL (NEGATIVE); UR LEUKOCYTE ESTERASE (Dip) NEGATIVE Leu/ul (NEGATIVE); UR NITRITE (Dip) NEGATIVE (NEGATIVE); UR TOTAL PROTEIN (Dip) NEGATIVE (NEGATIVE); UR UROBILINOGEN (Dip) NEGATIVE (NEGATIVE)
[2018-06-24] MEDS: ONDANSETRON 4 MG INJ IV ×3 (03:21→19:46)
[2018-06-24] MEDS: morphine (ER) 30 MG TAB PO ×3 (05:40→21:41)
[2018-06-24] MEDS: POLYETHYLENE GLYCOL 17 GM PACKET PO ×2 (05:40→20:38)
[2018-06-24 05:56] LABS: ABNORMAL IP MESSAGE 1; HEMOGLOBIN 10.8 g/dl (14.0-18.0); MEAN CORPUSCULAR HEMOGLOBIN 30.2 pg (29.0-33.0); MEAN CORPUSCULAR HGB CONC 33.8 g/dl (32.0-37.0); MEAN CORPUSCULAR VOLUME 89.4 fl (82.0-101.0); MEAN PLATELET VOLUME 9.7 fl (7.4-10.4); PLATELET COUNT 268 10^3/UL (140-415); POSITIVE DIFF @See below; RED BLOOD COUNT 3.58 10^6/ul (4.70-6.10); RED CELL DISTRIBUTION WIDTH 12.3 % (11.5-14.5)
[2018-06-24 06:16] LABS: ADD MAN DIFF? YES
[2018-06-24 06:26] LABS: ALANINE AMINOTRANSFERASE 46 IU/L (13-69); ALBUMIN 3.5 g/dl (3.3-4.9); ALBUMIN/GLOBULIN RATIO 1.02; ALKALINE PHOSPHATASE 92 IU/L (42-121); ANION GAP 7 (5-13); ASPARTATE AMINO TRANSFERASE 55 IU/L (15-46); BILIRUBIN,INDIRECT 0.4 mg/dl (0-1.1); BILIRUBIN,TOTAL 0.4 mg/dl (0.2-1.3); BLOOD UREA NITROGEN 20 mg/dl (7-20); CALCIUM 8.6 mg/dl (8.4-10.2); CARBON DIOXIDE 30 mmol/L (21-31); CHLORIDE 104 mmol/L (97-110); CREATININE 0.69 mg/dl (0.61-1.24); Estimated GFR > 60 mL/min (>60); GLUCOSE 120 mg/dl (70-220); POTASSIUM 3.4 mmol/L (3.5-5.1); SODIUM 141 mmol/L (135-144); TOTAL PROTEIN 6.9 g/dl (6.1-8.1); URIC ACID 6.6 mg/dl (3.1-7.9)
[2018-06-24] MEDS: LACTULOSE 30ML CUP PO (08:54)
[2018-06-24] MEDS: BISACODYL (EC) 5 MG TAB PO (08:55)
[2018-06-24] MEDS: DOCUSATE SODIUM 100 MG CAP PO ×2 (08:55→20:38)
[2018-06-24] MEDS: AMLODIPINE 5 MG TAB PO (08:56)
[2018-06-24] MEDS: SOD CHLORIDE 0.9% 1,000 ML IV (08:56)
[2018-06-24 09:01] LABS: ANISOCYTOSIS 1+ (0-0); BAND NEUTROPHILS #M 0.1 10^3/ul (0.0-0.6); BAND NEUTROPHILS % (M) 1 % (0-4); BASOPHIL #M 0.1 10^3/ul (0.0-0.0); BASOPHILS % (M) 1 % (0-2); EOSINOPHILS % (M) 1 % (0-7); HYPOCHROMASIA 1+ (0-0); LYMPHOCYTES #M 0.4 10^3/ul (0.8-2.9); LYMPHOCYTES % (M) 4 % (15-51); MICROCYTOSIS 1+ (0-0); MONOCYTE #M 0.4 10^3/ul (0.3-0.9); MONOCYTES % (M) 4 % (0-11); OVALOCYTES 1+ (0-0); PLATELET ESTIMATE NORMAL; SEG NEUT #M 9.8 10^3/ul (1.6-7.5); SEGMENTED NEUTROPHILS (M) % 89 % (39-77); SMUDGE%M 8 % (0-0)
[2018-06-24] MEDS: PROCHLORPERAZINE 10 MG INJ IV ×2 (14:20→20:37)
[2018-06-24] MEDS ORDERED: LORAZEPAM 2 MG INJ IV (14:30)
[2018-06-25] MEDS: LORAZEPAM 2 MG INJ IV ×2 (02:06→19:39)
[2018-06-25] MEDS: morphine (ER) 30 MG TAB PO ×3 (05:48→21:33)
[2018-06-25] MEDS: ONDANSETRON 4 MG INJ IV ×2 (05:48→19:30)
[2018-06-25] MEDS: SOD CHLORIDE 0.9% 1,000 ML IV (05:48)
[2018-06-25] MEDS: AMLODIPINE 5 MG TAB PO (09:40)
[2018-06-25] MEDS: BISACODYL (EC) 5 MG TAB PO (09:41)
[2018-06-25] MEDS: DOCUSATE SODIUM 100 MG CAP PO ×2 (09:41→21:33)
[2018-06-25] MEDS: POLYETHYLENE GLYCOL 17 GM PACKET PO (21:33)
[2018-06-26] MEDS: SOD CHLORIDE 0.9% 1,000 ML IV ×2 (01:07→19:28)
[2018-06-26 05:17] LABS: ABNORMAL IP MESSAGE 1; HEMATOCRIT 28.5 % (42.0-52.0); HEMOGLOBIN 9.7 g/dl (14.0-18.0); MEAN CORPUSCULAR HEMOGLOBIN 30.2 pg (29.0-33.0); MEAN CORPUSCULAR VOLUME 88.8 fl (82.0-101.0); MEAN PLATELET VOLUME 9.3 fl (7.4-10.4); PLATELET COUNT 189 10^3/UL (140-415); POSITIVE DIFF @See below; RED BLOOD COUNT 3.21 10^6/ul (4.70-6.10); RED CELL DISTRIBUTION WIDTH 12.2 % (11.5-14.5)
[2018-06-26 05:17] LABS: WHITE BLOOD COUNT 2.7 10^3/ul (4.8-10.8)
[2018-06-26 05:34] LABS: ADD MAN DIFF? YES
[2018-06-26 05:49] LABS: ALANINE AMINOTRANSFERASE 40 IU/L (13-69); ALBUMIN 3.1 g/dl (3.3-4.9); ALKALINE PHOSPHATASE 69 IU/L (42-121); ANION GAP 5 (5-13); ASPARTATE AMINO TRANSFERASE 38 IU/L (15-46); BILIRUBIN,INDIRECT 0.4 mg/dl (0-1.1); BILIRUBIN,TOTAL 0.4 mg/dl (0.2-1.3); BLOOD UREA NITROGEN 13 mg/dl (7-20); CALCIUM 8.1 mg/dl (8.4-10.2); CARBON DIOXIDE 29 mmol/L (21-31); CHLORIDE 105 mmol/L (97-110); CREATININE 0.59 mg/dl (0.61-1.24); Estimated GFR > 60 mL/min (>60); GLUCOSE 123 mg/dl (70-220); POTASSIUM 3.3 mmol/L (3.5-5.1); SODIUM 139 mmol/L (135-144); TOTAL PROTEIN 6.2 g/dl (6.1-8.1)
[2018-06-26] MEDS: morphine (ER) 30 MG TAB PO ×3 (06:09→21:35)
[2018-06-26] MEDS: ONDANSETRON 4 MG INJ IV ×3 (06:09→21:38)
[2018-06-26] MEDS: DOCUSATE SODIUM 100 MG CAP PO ×2 (08:56→20:33)
[2018-06-26] MEDS: BISACODYL (EC) 5 MG TAB PO (08:56)
[2018-06-26] MEDS: AMLODIPINE 5 MG TAB PO (08:56)
[2018-06-26] MEDS: LACTULOSE 30ML CUP PO ×2 (08:57→20:33)
[2018-06-26] MEDS: PROCHLORPERAZINE 10 MG INJ IV (10:12)
[2018-06-26 10:18] LABS: ANISOCYTOSIS 1+ (0-0); BAND NEUTROPHILS % (M) 1 % (0-4); BASOPHIL #M 0.1 10^3/ul (0.0-0.0); BASOPHILS % (M) 5 % (0-2); EOSINOPHILS % (M) 5 % (0-7); GIANT THROMBO% (M) 1 % (0-0); LYMPHOCYTES #M 0.9 10^3/ul (0.8-2.9); LYMPHOCYTES % (M) 36 % (15-51); MONOCYTES % (M) 1 % (0-11); PLATELET ESTIMATE NORMAL; POIKILOCYTOSIS 1+ (0-0); REACTIVE LYMPHOCYTES #M 0.2 10^3/ul (0.0-0.0); REACTIVE LYMPHOCYTES% (M) 9 % (0-0); SEG NEUT #M 1.2 10^3/ul (1.6-7.5); SEGMENTED NEUTROPHILS (M) % 43 % (39-77); SMUDGE%M 10 % (0-0)
[2018-06-26] MEDS: POTASSIUM CHLORIDE (SR) 20 MEQ TAB PO (13:53)
[2018-06-26] MEDS: FILGRASTIM-AAFI 300 MCG/0.5 ML SYRINGE SC (19:20)
[2018-06-27] MEDS: morphine (ER) 30 MG TAB PO (06:11)
[2018-06-27] MEDS: ONDANSETRON 4 MG INJ IV (06:11)
[2018-06-27 08:48] LABS: ABNORMAL IP MESSAGE 1; HEMATOCRIT 28.6 % (42.0-52.0); HEMOGLOBIN 9.5 g/dl (14.0-18.0); MEAN CORPUSCULAR HEMOGLOBIN 29.5 pg (29.0-33.0); MEAN CORPUSCULAR HGB CONC 33.2 g/dl (32.0-37.0); MEAN CORPUSCULAR VOLUME 88.8 fl (82.0-101.0); MEAN PLATELET VOLUME 9.1 fl (7.4-10.4); PLATELET COUNT 172 10^3/UL (140-415); POSITIVE DIFF @See below; RED BLOOD COUNT 3.22 10^6/ul (4.70-6.10); RED CELL DISTRIBUTION WIDTH 12.3 % (11.5-14.5)
[2018-06-27 08:48] LABS: WHITE BLOOD COUNT 3.3 10^3/ul (4.8-10.8)
[2018-06-27 08:49] LABS: ADD MAN DIFF? YES
[2018-06-27] MEDS: BISACODYL (EC) 5 MG TAB PO (09:00)
[2018-06-27] MEDS: DOCUSATE SODIUM 100 MG CAP PO ×2 (09:00→21:00)
[2018-06-27] MEDS: LACTULOSE 30ML CUP PO ×2 (09:00→21:00)
[2018-06-27 09:14] LABS: ALANINE AMINOTRANSFERASE 38 IU/L (13-69); ALBUMIN 3.2 g/dl (3.3-4.9); ALKALINE PHOSPHATASE 73 IU/L (42-121); ANION GAP 6 (5-13); ASPARTATE AMINO TRANSFERASE 33 IU/L (15-46); BILIRUBIN,INDIRECT 0.5 mg/dl (0-1.1); BILIRUBIN,TOTAL 0.5 mg/dl (0.2-1.3); BLOOD UREA NITROGEN 11 mg/dl (7-20); CALCIUM 8.2 mg/dl (8.4-10.2); CARBON DIOXIDE 27 mmol/L (21-31); CHLORIDE 107 mmol/L (97-110); CREATININE 0.58 mg/dl (0.61-1.24); Estimated GFR > 60 mL/min (>60); GLUCOSE 119 mg/dl (70-220); POTASSIUM 3.6 mmol/L (3.5-5.1); SODIUM 140 mmol/L (135-144); TOTAL PROTEIN 6.4 g/dl (6.1-8.1)
[2018-06-27 09:32] LABS: BAND NEUTROPHILS #M 0.1 10^3/ul (0.0-0.6); BAND NEUTROPHILS % (M) 4 % (0-4); BASOPHIL #M 0.1 10^3/ul (0.0-0.0); BASOPHILS % (M) 6 % (0-2); EOSINOPHILS % (M) 13 % (0-7); LYMPHOCYTES #M 0.5 10^3/ul (0.8-2.9); LYMPHOCYTES % (M) 18 % (15-51); MONOCYTE #M 0.2 10^3/ul (0.3-0.9); MONOCYTES % (M) 7 % (0-11); OVALOCYTES 1+ (0-0); PLATELET ESTIMATE NORMAL; POIKILOCYTOSIS 1+ (0-0); POLYCHROMASIA 1+ (0-0); REACTIVE LYMPHOCYTES #M 0.3 10^3/ul (0.0-0.0); REACTIVE LYMPHOCYTES% (M) 10 % (0-0); SEG NEUT #M 1.4 10^3/ul (1.6-7.5); SEGMENTED NEUTROPHILS (M) % 42 % (39-77); SMUDGE%M 1 % (0-0); TARGET CELLS 1+ (0-0)
[2018-06-27] MEDS: morphine (ER) 15 MG TAB PO ×2 (15:00→21:50)
[2018-06-27] MEDS: FILGRASTIM-AAFI 300 MCG/0.5 ML SYRINGE SC (20:17)
[2018-06-28 04:58] LABS: HEMATOCRIT 27.5 % (42.0-52.0); HEMOGLOBIN 9.2 g/dl (14.0-18.0); MEAN CORPUSCULAR HGB CONC 33.5 g/dl (32.0-37.0); MEAN CORPUSCULAR VOLUME 89.6 fl (82.0-101.0); PLATELET COUNT 157 10^3/UL (140-415); POSITIVE DIFF @See below; RED BLOOD COUNT 3.07 10^6/ul (4.70-6.10); RED CELL DISTRIBUTION WIDTH 12.4 % (11.5-14.5)
[2018-06-28 04:58] LABS: WHITE BLOOD COUNT 2.8 10^3/ul (4.8-10.8)
[2018-06-28 05:06] LABS: ADD MAN DIFF? YES
[2018-06-28 05:24] LABS: CHLORIDE 106 mmol/L (97-110); POTASSIUM 3.5 mmol/L (3.5-5.1); SODIUM 141 mmol/L (135-144)
[2018-06-28 05:25] LABS: ALANINE AMINOTRANSFERASE 37 IU/L (13-69); ALBUMIN/GLOBULIN RATIO 0.96; ALKALINE PHOSPHATASE 77 IU/L (42-121); ANION GAP 6 (5-13); ASPARTATE AMINO TRANSFERASE 24 IU/L (15-46); BILIRUBIN,INDIRECT 0.3 mg/dl (0-1.1); BILIRUBIN,TOTAL 0.3 mg/dl (0.2-1.3); BLOOD UREA NITROGEN 12 mg/dl (7-20); CARBON DIOXIDE 29 mmol/L (21-31); CREATININE 0.57 mg/dl (0.61-1.24); Estimated GFR > 60 mL/min (>60); GLUCOSE 134 mg/dl (70-220); TOTAL PROTEIN 6.1 g/dl (6.1-8.1); URIC ACID 3.1 mg/dl (3.1-7.9)
[2018-06-28] MEDS: morphine (ER) 15 MG TAB PO ×2 (05:57→14:27)
[2018-06-28 08:46] LABS: BAND NEUTROPHILS #M 0.1 10^3/ul (0.0-0.6); BAND NEUTROPHILS % (M) 4 % (0-4); BASOPHILS % (M) 1 % (0-2); BURR CELLS 1+ (0-0); EOSINOPHILS % (M) 7 % (0-7); GIANT THROMBO% (M) 2 % (0-0); LYMPHOCYTES #M 1.4 10^3/ul (0.8-2.9); LYMPHOCYTES % (M) 50 % (15-51); MONOCYTE #M 0.1 10^3/ul (0.3-0.9); MONOCYTES % (M) 5 % (0-11); OVALOCYTES 1+ (0-0); PLATELET ESTIMATE NORMAL; POIKILOCYTOSIS 1+ (0-0); REACTIVE LYMPHOCYTES% (M) 1 % (0-0); SEG NEUT #M 0.9 10^3/ul (1.6-7.5); SEGMENTED NEUTROPHILS (M) % 32 % (39-77); SMUDGE%M 17 % (0-0)
[2018-06-28] MEDS: DOCUSATE SODIUM 100 MG CAP PO (09:40)
[2018-06-28] MEDS: LACTULOSE 30ML CUP PO (09:40)
[2018-06-28] MEDS: BISACODYL (EC) 5 MG TAB PO (11:14)
[2018-06-28] MEDS: HEPARIN (100 UNITS/ML) 5 ML SYG CATHETER (16:09)
== END 2018-06-28 17:31 | disposition home or self-care (01) | DRG 543 ==
LOC: MS1 06-16 22:22 → E/R 17:17 → PP2 21:20
PROC: 0JBL3ZX Excision of Right Upper Leg Subcutaneous Tissue and Fascia, Percutaneous Approach, Diagnostic (ICD-10-PCS; 2018-06-06)
PROC: 02H633Z Insertion of Infusion Device into Right Atrium, Percutaneous Approach (ICD-10-PCS; principal; 2018-06-13)
PROC: 0JH63XZ Insertion of Tunneled Vascular Access Device into Chest Subcutaneous Tissue and Fascia, Percutaneous Approach (ICD-10-PCS; 2018-06-13)
PROC: 3E04305 Introduction of Other Antineoplastic into Central Vein, Percutaneous Approach (ICD-10-PCS; 2018-06-17)
DX: C49.21 Malignant neoplasm of connective and soft tissue of right lower limb, including hip (principal); C78.02 Secondary malignant neoplasm of left lung; C78.01 Secondary malignant neoplasm of right lung; F17.210 Nicotine dependence, cigarettes, uncomplicated; R11.0 Nausea; D70.2 Other drug-induced agranulocytosis; T45.1X5A Adverse effect of antineoplastic and immunosuppressive drugs, initial encounter
CPT/HCPCS: 36415; 36561; 71045; 71260; 73070-52; 73550; 73719; 74177; 76942; 77012; 80048; 80053; 80202; 81001; 81003; 81025; 83690; 83735; 84100; 84484; 84560; 85025; 85610; 85651; 85730; 87040-91; 88307; 88313; 88341; 88342; 93005; 93306; 93971; 96374; 96375; 99285-25; J9130; J9209

== ENCOUNTER 2018-06-30 23:36 | Emergency (ER) | payer OTHER ==
[2018-07-01] MEDS: HYDROmorphONE 1 MG/ML SYG IV (00:30)
[2018-07-01] MEDS: ONDANSETRON 4 MG INJ IV (00:30)
[2018-07-01] MEDS: SOD CHLORIDE 0.9% 500 ML IV (00:41)
[2018-07-01 00:50] LABS: ABNORMAL IP MESSAGE 1; HEMATOCRIT 29.9 % (42.0-52.0); MEAN CORPUSCULAR HEMOGLOBIN 29.9 pg (29.0-33.0); MEAN CORPUSCULAR HGB CONC 33.4 g/dl (32.0-37.0); MEAN CORPUSCULAR VOLUME 89.5 fl (82.0-101.0); MEAN PLATELET VOLUME 9.2 fl (7.4-10.4); PLATELET COUNT 226 10^3/UL (140-415); POSITIVE DIFF @See below; RED BLOOD COUNT 3.34 10^6/ul (4.70-6.10); RED CELL DISTRIBUTION WIDTH 12.3 % (11.5-14.5)
[2018-07-01 00:50] LABS: WHITE BLOOD COUNT 4.3 10^3/ul (4.8-10.8)
[2018-07-01 00:52] LABS: ADD MAN DIFF? YES
[2018-07-01 01:07] LABS: ALANINE AMINOTRANSFERASE 26 IU/L (13-69); ALBUMIN 3.6 g/dl (3.3-4.9); ALKALINE PHOSPHATASE 97 IU/L (42-121); ANION GAP 5 (5-13); ASPARTATE AMINO TRANSFERASE 24 IU/L (15-46); BILIRUBIN,INDIRECT 0.3 mg/dl (0-1.1); BILIRUBIN,TOTAL 0.3 mg/dl (0.2-1.3); BLOOD UREA NITROGEN 12 mg/dl (7-20); CALCIUM 8.6 mg/dl (8.4-10.2); CARBON DIOXIDE 31 mmol/L (21-31); CHLORIDE 102 mmol/L (97-110); CREATININE 0.98 mg/dl (0.61-1.24); Estimated GFR > 60 mL/min (>60); GLUCOSE 101 mg/dl (70-220); LIPASE 124 U/L (23-300); POTASSIUM 3.7 mmol/L (3.5-5.1); SODIUM 138 mmol/L (135-144); TOTAL PROTEIN 6.6 g/dl (6.1-8.1)
[2018-07-01 01:57] LABS: BAND NEUTROPHILS #M 0.1 10^3/ul (0.0-0.6); BAND NEUTROPHILS % (M) 4 % (0-4); EOSINOPHILS % (M) 3 % (0-7); LYMPHOCYTES #M 1.2 10^3/ul (0.8-2.9); LYMPHOCYTES % (M) 30 % (15-51); MONOCYTE #M 0.9 10^3/ul (0.3-0.9); MONOCYTES % (M) 23 % (0-11); MYELOCYTES % (M) 2 % (0-0); PLATELET ESTIMATE NORMAL; PROMYELOCYTES % (M) 2 % (0-0); REACTIVE LYMPHOCYTES% (M) 1 % (0-0); SEG NEUT #M 1.5 10^3/ul (1.6-7.5); SEGMENTED NEUTROPHILS (M) % 35 % (39-77); SMUDGE%M 11 % (0-0)
== END 2018-07-01 01:50 | disposition home or self-care (01) ==
LOC: E/R 23:36
DX: M79.89 Other specified soft tissue disorders (principal); C76.51 Malignant neoplasm of right lower limb
CPT/HCPCS: 36415; 80053; 83605; 83690; 85025; 93971; 99285-25

== ENCOUNTER 2018-08-11 09:26 | Inpatient (IN) | payer OTHER ==
[2018-08-11] MEDS: SOD CHLORIDE 0.45% 1,000 ML IV ×2 (12:59→21:43)
[2018-08-11 14:51] LABS: ADD MAN DIFF? NO
[2018-08-11 14:56] LABS: BASOPHIL # 0.1 10^3/ul (0.0-0.1); BASOPHILS % 0.6 % (0.0-2.0); EOSINOPHILS # 0.4 10^3/ul (0.0-0.5); EOSINOPHILS % 1.8 % (0.0-7.0); HEMATOCRIT 31.8 % (42.0-52.0); HEMOGLOBIN 10.6 g/dl (14.0-18.0); LYMPHOCYTES # 1.5 10^3/ul (0.8-2.9); LYMPHOCYTES % 7.7 % (15.0-51.0); MEAN CORPUSCULAR HEMOGLOBIN 29.5 pg (29.0-33.0); MEAN CORPUSCULAR HGB CONC 33.3 g/dl (32.0-37.0); MEAN CORPUSCULAR VOLUME 88.6 fl (82.0-101.0); MONOCYTE # 1.4 10^3/ul (0.3-0.9); MONOCYTES % 7.4 % (0.0-11.0); NEUTROPHIL # 15.9 10^3/ul (1.6-7.5); NEUTROPHILS % 81.9 % (39.0-77.0); PLATELET COUNT 298 10^3/UL (140-415); RED BLOOD COUNT 3.59 10^6/ul (4.70-6.10)
[2018-08-11 14:56] LABS: WHITE BLOOD COUNT 19.4 10^3/ul (4.8-10.8)
[2018-08-11 15:24] LABS: ALANINE AMINOTRANSFERASE 13 IU/L (13-69); ALBUMIN 3.7 g/dl (3.3-4.9); ALKALINE PHOSPHATASE 88 IU/L (42-121); ANION GAP 8 (5-13); ASPARTATE AMINO TRANSFERASE 33 IU/L (15-46); BILIRUBIN,INDIRECT 0.6 mg/dl (0-1.1); BILIRUBIN,TOTAL 0.6 mg/dl (0.2-1.3); BLOOD UREA NITROGEN 11 mg/dl (7-20); CALCIUM 8.6 mg/dl (8.4-10.2); CARBON DIOXIDE 28 mmol/L (21-31); CHLORIDE 104 mmol/L (97-110); CREATININE 0.81 mg/dl (0.61-1.24); Estimated GFR > 60 mL/min (>60); GLUCOSE 93 mg/dl (70-220); POTASSIUM 3.9 mmol/L (3.5-5.1); SODIUM 140 mmol/L (135-144); TOTAL PROTEIN 7.4 g/dl (6.1-8.1); URIC ACID 7.4 mg/dl (3.1-7.9)
[2018-08-11] MEDS ORDERED: PROCHLORPERAZINE 10 MG INJ IV (16:00)
[2018-08-11] MEDS ORDERED: ZOLPIDEM 5 MG TAB PO (17:30)
[2018-08-11] MEDS ORDERED: NACL 0.9% 3 ML SYG IV (17:30)
[2018-08-11] MEDS: morphine 2 MG INJ IV ×2 (19:22→23:51)
[2018-08-11] MEDS: HYDROCODONE/APAP (5/325) TAB PO (20:52)
[2018-08-11] MEDS: ONDANSETRON INJ 16 MG in DEXTROSE 5% 50 ML IV (21:44)
[2018-08-11] MEDS ORDERED: DEXAMETHASONE 4 MG/ML 20 MG in DEXTROSE 5% 50 ML IV (22:00)
[2018-08-11] MEDS: APREPITANT 125 MG PO (22:19)
[2018-08-11] MEDS: DOXORUBICIN IV (23:20)
[2018-08-11] MEDS: SOD CHLORIDE 0.9% IV ×2 (23:20→23:44)
[2018-08-11] MEDS: MESNA IV (23:44)
[2018-08-12] MEDS: DEXTROSE 5% IV ×2 (00:26→22:32)
[2018-08-12] MEDS: DACARBAZINE IV ×2 (00:26→22:32)
[2018-08-12] MEDS: IFOSFAMIDE IV ×2 (01:04→23:56)
[2018-08-12] MEDS: SOD CHLORIDE 0.9% IV ×2 (01:04→23:56)
[2018-08-12 04:56] LABS: ADD MAN DIFF? NO
[2018-08-12 05:05] LABS: BASOPHIL # 0.1 10^3/ul (0.0-0.1); BASOPHILS % 0.6 % (0.0-2.0); EOSINOPHILS # 0.5 10^3/ul (0.0-0.5); EOSINOPHILS % 3.1 % (0.0-7.0); HEMATOCRIT 31.3 % (42.0-52.0); HEMOGLOBIN 10.5 g/dl (14.0-18.0); LYMPHOCYTES # 1.4 10^3/ul (0.8-2.9); LYMPHOCYTES % 8.9 % (15.0-51.0); MEAN CORPUSCULAR HEMOGLOBIN 30.2 pg (29.0-33.0); MEAN CORPUSCULAR HGB CONC 33.5 g/dl (32.0-37.0); MEAN CORPUSCULAR VOLUME 89.9 fl (82.0-101.0); MONOCYTE # 1.3 10^3/ul (0.3-0.9); MONOCYTES % 8.3 % (0.0-11.0); NEUTROPHIL # 12.6 10^3/ul (1.6-7.5); NEUTROPHILS % 78.6 % (39.0-77.0); PLATELET COUNT 280 10^3/UL (140-415); RED BLOOD COUNT 3.48 10^6/ul (4.70-6.10); RED CELL DISTRIBUTION WIDTH 15.1 % (11.5-14.5)
[2018-08-12 05:36] LABS: ANION GAP 8 (5-13); BLOOD UREA NITROGEN 9 mg/dl (7-20); CALCIUM 8.4 mg/dl (8.4-10.2); CARBON DIOXIDE 30 mmol/L (21-31); CHLORIDE 104 mmol/L (97-110); CREATININE 0.98 mg/dl (0.61-1.24); Estimated GFR > 60 mL/min (>60); GLUCOSE 105 mg/dl (70-220); PHOSPHORUS 3.7 mg/dl (2.5-4.9); POTASSIUM 4.2 mmol/L (3.5-5.1); SODIUM 142 mmol/L (135-144)
[2018-08-12] MEDS: morphine 2 MG INJ IV (07:03)
[2018-08-12] MEDS: SOD CHLORIDE 0.45% 1,000 ML IV ×2 (08:49→17:09)
[2018-08-12 09:55] LABS: ADD UMIC NO; UR ASCORBIC ACID 40 mg/dL (NEGATIVE); UR BILIRUBIN (Dip) NEGATIVE (NEGATIVE); UR BLOOD (Dip) NEGATIVE (NEGATIVE); UR CLARITY CLEAR (CLEAR); UR COLOR YELLOW (YELLOW); UR GLUCOSE (Dip) NEGATIVE (NEGATIVE); UR KETONES (Dip) 2+ mg/dL (NEGATIVE); UR LEUKOCYTE ESTERASE (Dip) NEGATIVE Leu/ul (NEGATIVE); UR NITRITE (Dip) NEGATIVE (NEGATIVE); UR TOTAL PROTEIN (Dip) NEGATIVE (NEGATIVE); UR UROBILINOGEN (Dip) NEGATIVE (NEGATIVE)
[2018-08-12] MEDS: HYDROCODONE/APAP (5/325) TAB PO ×2 (10:09→21:01)
[2018-08-12] MEDS: HYDROmorphONE 1 MG/ML SYG IV ×2 (12:41→20:12)
[2018-08-12] MEDS: ONDANSETRON INJ 16 MG in DEXTROSE 5% 50 ML IV (20:14)
[2018-08-12] MEDS: APREPITANT 80 MG CAPSULE PO (22:14)
[2018-08-13] MEDS: HYDROmorphONE 1 MG/ML SYG IV ×6 (00:08→21:35)
[2018-08-13] MEDS: SOD CHLORIDE 0.9% IV ×4 (00:08→23:32)
[2018-08-13] MEDS: MESNA IV ×2 (00:08→22:33)
[2018-08-13] MEDS: DOXORUBICIN IV (00:53)
[2018-08-13] MEDS: SOD CHLORIDE 0.45% 1,000 ML IV ×2 (08:53→21:55)
[2018-08-13 11:19] LABS: ADD UMIC NO; UR ASCORBIC ACID 40 mg/dL (NEGATIVE); UR BILIRUBIN (Dip) NEGATIVE (NEGATIVE); UR BLOOD (Dip) NEGATIVE (NEGATIVE); UR CLARITY CLEAR (CLEAR); UR COLOR YELLOW (YELLOW); UR GLUCOSE (Dip) 1+ mg/dL (NEGATIVE); UR KETONES (Dip) 2+ mg/dL (NEGATIVE); UR LEUKOCYTE ESTERASE (Dip) NEGATIVE Leu/ul (NEGATIVE); UR NITRITE (Dip) NEGATIVE (NEGATIVE); UR SPECIFIC GRAVITY (Dip) 1.012 (1.003-1.030); UR TOTAL PROTEIN (Dip) NEGATIVE (NEGATIVE); UR UROBILINOGEN (Dip) NEGATIVE (NEGATIVE)
[2018-08-13] MEDS: HYDROCODONE/APAP (5/325) TAB PO (12:26)
[2018-08-13] MEDS: ONDANSETRON INJ 16 MG in DEXTROSE 5% 50 ML IV (19:30)
[2018-08-13] MEDS: APREPITANT 80 MG CAPSULE PO (21:34)
[2018-08-13] MEDS: DACARBAZINE IV (21:51)
[2018-08-13] MEDS: DEXTROSE 5% IV (21:51)
[2018-08-13] MEDS: PROCHLORPERAZINE 10 MG INJ IV (22:45)
[2018-08-13] MEDS: IFOSFAMIDE IV (23:32)
[2018-08-14] MEDS: HYDROmorphONE 1 MG/ML SYG IV ×5 (00:42→21:22)
[2018-08-14] MEDS: DOXORUBICIN IV (00:56)
[2018-08-14] MEDS: SOD CHLORIDE 0.9% IV ×2 (00:56→21:22)
[2018-08-14] MEDS: SOD CHLORIDE 0.45% 1,000 ML IV ×2 (01:20→14:19)
[2018-08-14] MEDS: HYDROCODONE/APAP (5/325) TAB PO ×4 (02:49→18:25)
[2018-08-14 06:17] LABS: ADD UMIC NO; UR ASCORBIC ACID 20 mg/dL (NEGATIVE); UR BILIRUBIN (Dip) NEGATIVE (NEGATIVE); UR BLOOD (Dip) NEGATIVE (NEGATIVE); UR CLARITY CLEAR (CLEAR); UR COLOR YELLOW (YELLOW); UR GLUCOSE (Dip) NEGATIVE (NEGATIVE); UR KETONES (Dip) 1+ mg/dL (NEGATIVE); UR LEUKOCYTE ESTERASE (Dip) NEGATIVE Leu/ul (NEGATIVE); UR NITRITE (Dip) NEGATIVE (NEGATIVE); UR TOTAL PROTEIN (Dip) NEGATIVE (NEGATIVE); UR UROBILINOGEN (Dip) NEGATIVE (NEGATIVE)
[2018-08-14] MEDS: PROCHLORPERAZINE 10 MG INJ IV (09:39)
[2018-08-14] MEDS: DOCUSATE SODIUM 100 MG CAP PO (09:49)
[2018-08-14] MEDS: MESNA IV (21:22)
[2018-08-14] MEDS: ONDANSETRON INJ 16 MG in DEXTROSE 5% 50 ML IV (21:22)
[2018-08-15] MEDS: HYDROCODONE/APAP (5/325) TAB PO ×3 (00:23→12:24)
[2018-08-15] MEDS: HYDROmorphONE 1 MG/ML SYG IV ×7 (01:19→22:10)
[2018-08-15] MEDS: SOD CHLORIDE 0.45% 1,000 ML IV (01:52)
[2018-08-15 07:05] LABS: ADD UMIC NO; UR ASCORBIC ACID NEGATIVE (NEGATIVE); UR BILIRUBIN (Dip) NEGATIVE (NEGATIVE); UR BLOOD (Dip) NEGATIVE (NEGATIVE); UR CLARITY CLEAR (CLEAR); UR COLOR STRAW (YELLOW); UR GLUCOSE (Dip) 1+ mg/dL (NEGATIVE); UR KETONES (Dip) 1+ mg/dL (NEGATIVE); UR LEUKOCYTE ESTERASE (Dip) NEGATIVE Leu/ul (NEGATIVE); UR NITRITE (Dip) NEGATIVE (NEGATIVE); UR SPECIFIC GRAVITY (Dip) 1.009 (1.003-1.030); UR TOTAL PROTEIN (Dip) NEGATIVE (NEGATIVE); UR UROBILINOGEN (Dip) NEGATIVE (NEGATIVE)
[2018-08-15] MEDS: ACETAMINOPHEN 325 MG TAB PO (15:58)
[2018-08-15] MEDS: FILGRASTIM-AAFI 300 MCG/0.5 ML SYRINGE SC (17:37)
[2018-08-16] MEDS: HYDROmorphONE 1 MG/ML SYG IV ×8 (01:36→23:18)
[2018-08-16] MEDS: HYDROCODONE/APAP (5/325) TAB PO (06:10)
[2018-08-16] MEDS: ONDANSETRON 4 MG INJ IV ×3 (06:12→21:33)
[2018-08-16] MEDS ORDERED: NS + KCL 20 MEQ 1,000 ML IV (11:30)
[2018-08-16 12:13] LABS: ADD UMIC YES; UR ASCORBIC ACID NEGATIVE (NEGATIVE); UR BACTERIA FEW /HPF (NONE SEEN); UR BILIRUBIN (Dip) NEGATIVE (NEGATIVE); UR BLOOD (Dip) 1+ mg/dL (NEGATIVE); UR CLARITY CLEAR (CLEAR); UR COLOR YELLOW (YELLOW); UR GLUCOSE (Dip) 1+ mg/dL (NEGATIVE); UR KETONES (Dip) 2+ mg/dL (NEGATIVE); UR LEUKOCYTE ESTERASE (Dip) NEGATIVE Leu/ul (NEGATIVE); UR NITRITE (Dip) NEGATIVE (NEGATIVE); UR RBC 1 /HPF (0-5); UR SPECIFIC GRAVITY (Dip) 1.015 (1.003-1.030); UR TOTAL PROTEIN (Dip) 1+ mg/dl (NEGATIVE); UR UROBILINOGEN (Dip) NEGATIVE (NEGATIVE); UR WBC 5 /HPF (0-5)
[2018-08-16] MEDS: METOCLOPRAMIDE 10 MG INJ IV (12:55)
[2018-08-16] MEDS: 1/2 NS + KCL 20 MEQ 1,000 ML IV ×2 (12:56→22:26)
[2018-08-16] MEDS: ACETAMINOPHEN 325 MG TAB PO (14:03)
[2018-08-16] MEDS: FILGRASTIM-AAFI 300 MCG/0.5 ML SYRINGE SC (18:26)
[2018-08-16] MEDS: morphine (ER) 15 MG TAB PO (20:58)
[2018-08-17] MEDS: HYDROmorphONE 1 MG/ML SYG IV ×3 (01:26→18:19)
[2018-08-17 05:16] LABS: ABNORMAL IP MESSAGE 1; HEMATOCRIT 28.5 % (42.0-52.0); HEMOGLOBIN 9.7 g/dl (14.0-18.0); MEAN CORPUSCULAR HEMOGLOBIN 29.6 pg (29.0-33.0); MEAN CORPUSCULAR VOLUME 86.9 fl (82.0-101.0); MEAN PLATELET VOLUME 9.2 fl (7.4-10.4); PLATELET COUNT 271 10^3/UL (140-415); POSITIVE DIFF @See below; RED BLOOD COUNT 3.28 10^6/ul (4.70-6.10); RED CELL DISTRIBUTION WIDTH 14.6 % (11.5-14.5)
[2018-08-17 05:16] LABS: WHITE BLOOD COUNT 40.6 10^3/ul (4.8-10.8)
[2018-08-17 05:40] LABS: ALANINE AMINOTRANSFERASE 17 IU/L (13-69); ALBUMIN 3.4 g/dl (3.3-4.9); ALBUMIN/GLOBULIN RATIO 1.03; ALKALINE PHOSPHATASE 96 IU/L (42-121); ANION GAP 12 (5-13); ASPARTATE AMINO TRANSFERASE 35 IU/L (15-46); BILIRUBIN,INDIRECT 0.5 mg/dl (0-1.1); BILIRUBIN,TOTAL 0.5 mg/dl (0.2-1.3); BLOOD UREA NITROGEN 16 mg/dl (7-20); CALCIUM 8.8 mg/dl (8.4-10.2); CARBON DIOXIDE 20 mmol/L (21-31); CHLORIDE 103 mmol/L (97-110); CREATININE 0.82 mg/dl (0.61-1.24); Estimated GFR > 60 mL/min (>60); GLUCOSE 105 mg/dl (70-220); SODIUM 135 mmol/L (135-144); TOTAL PROTEIN 6.7 g/dl (6.1-8.1)
[2018-08-17 05:41] LABS: ADD MAN DIFF? YES
[2018-08-17 08:04] LABS: ANISOCYTOSIS 1+ (0-0); BAND NEUTROPHILS % (M) 5 % (0-4); BURR CELLS 2+ (0-0); LYMPHOCYTES #M 0.8 10^3/ul (0.8-2.9); LYMPHOCYTES % (M) 2 % (15-51); MONOCYTE #M 0.4 10^3/ul (0.3-0.9); MONOCYTES % (M) 1 % (0-11); PLATELET ESTIMATE NORMAL; POIKILOCYTOSIS 3+ (0-0); POLYCHROMASIA 1+ (0-0); SEG NEUT #M 38.2 10^3/ul (1.6-7.5); SEGMENTED NEUTROPHILS (M) % 92 % (39-77); SMUDGE%M 1 % (0-0)
[2018-08-17] MEDS: SENNA TAB PO ×2 (09:28→20:08)
[2018-08-17] MEDS: morphine (ER) 15 MG TAB PO ×2 (09:28→20:08)
[2018-08-17] MEDS: 1/2 NS + KCL 20 MEQ 1,000 ML IV ×2 (09:29→18:19)
[2018-08-17 09:30] LABS: ADD UMIC YES; UR ASCORBIC ACID NEGATIVE (NEGATIVE); UR BILIRUBIN (Dip) NEGATIVE (NEGATIVE); UR BLOOD (Dip) 1+ mg/dL (NEGATIVE); UR CLARITY CLEAR (CLEAR); UR COLOR YELLOW (YELLOW); UR GLUCOSE (Dip) NEGATIVE (NEGATIVE); UR KETONES (Dip) 1+ mg/dL (NEGATIVE); UR LEUKOCYTE ESTERASE (Dip) NEGATIVE Leu/ul (NEGATIVE); UR NITRITE (Dip) NEGATIVE (NEGATIVE); UR RBC 0 /HPF (0-5); UR TOTAL PROTEIN (Dip) NEGATIVE (NEGATIVE); UR UROBILINOGEN (Dip) NEGATIVE (NEGATIVE); UR WBC 1 /HPF (0-5)
[2018-08-17] MEDS: ONDANSETRON 4 MG INJ IV ×2 (09:31→18:22)
[2018-08-18] MEDS: HYDROmorphONE 1 MG/ML SYG IV ×2 (00:12→09:56)
[2018-08-18] MEDS: 1/2 NS + KCL 20 MEQ 1,000 ML IV (04:50)
[2018-08-18 05:08] LABS: ADD MAN DIFF? NO
[2018-08-18 05:13] LABS: ABNORMAL IP MESSAGE 1; BASOPHILS % 0.1 % (0.0-2.0); EOSINOPHILS # 0.2 10^3/ul (0.0-0.5); EOSINOPHILS % 1.4 % (0.0-7.0); HEMATOCRIT 29.2 % (42.0-52.0); HEMOGLOBIN 9.9 g/dl (14.0-18.0); LYMPHOCYTES # 0.7 10^3/ul (0.8-2.9); LYMPHOCYTES % 5.2 % (15.0-51.0); MEAN CORPUSCULAR HEMOGLOBIN 29.4 pg (29.0-33.0); MEAN CORPUSCULAR HGB CONC 33.9 g/dl (32.0-37.0); MEAN CORPUSCULAR VOLUME 86.6 fl (82.0-101.0); MEAN PLATELET VOLUME 8.6 fl (7.4-10.4); MONOCYTE # 0.3 10^3/ul (0.3-0.9); MONOCYTES % 2.4 % (0.0-11.0); NEUTROPHIL # 11.3 10^3/ul (1.6-7.5); NEUTROPHILS % 80.4 % (39.0-77.0); PLATELET COUNT 258 10^3/UL (140-415); POSITIVE DIFF @See below; RED BLOOD COUNT 3.37 10^6/ul (4.70-6.10); RED CELL DISTRIBUTION WIDTH 14.5 % (11.5-14.5)
[2018-08-18 05:38] LABS: ALANINE AMINOTRANSFERASE 21 IU/L (13-69); ALBUMIN 3.4 g/dl (3.3-4.9); ALKALINE PHOSPHATASE 86 IU/L (42-121); ANION GAP 7 (5-13); ASPARTATE AMINO TRANSFERASE 34 IU/L (15-46); BILIRUBIN,INDIRECT 0.5 mg/dl (0-1.1); BILIRUBIN,TOTAL 0.5 mg/dl (0.2-1.3); BLOOD UREA NITROGEN 15 mg/dl (7-20); CALCIUM 8.9 mg/dl (8.4-10.2); CARBON DIOXIDE 26 mmol/L (21-31); CHLORIDE 104 mmol/L (97-110); CREATININE 0.86 mg/dl (0.61-1.24); Estimated GFR > 60 mL/min (>60); GLUCOSE 104 mg/dl (70-220); POTASSIUM 4.7 mmol/L (3.5-5.1); SODIUM 137 mmol/L (135-144); TOTAL PROTEIN 6.8 g/dl (6.1-8.1)
[2018-08-18 05:39] LABS: MAGNESIUM 2.4 mg/dl (1.7-2.5)
[2018-08-18 08:16] LABS: ANISOCYTOSIS 2+ (0-0); BAND NEUTROPHILS #M 0.9 10^3/ul (0.0-0.6); BAND NEUTROPHILS % (M) 7 % (0-4); EOSINOPHILS % (M) 1 % (0-7); LYMPHOCYTES #M 0.5 10^3/ul (0.8-2.9); LYMPHOCYTES % (M) 4 % (15-51); MONOCYTE #M 0.1 10^3/ul (0.3-0.9); MONOCYTES % (M) 1 % (0-11); PLATELET ESTIMATE NORMAL; POIKILOCYTOSIS 1+ (0-0); POLYCHROMASIA 3+ (0-0); SEG NEUT #M 12.3 10^3/ul (1.6-7.5); SEGMENTED NEUTROPHILS (M) % 87 % (39-77); SMUDGE%M 1 % (0-0)
[2018-08-18] MEDS: morphine (ER) 15 MG TAB PO ×2 (09:16→20:16)
[2018-08-18] MEDS: SENNA TAB PO ×2 (09:17→20:15)
[2018-08-18] MEDS: MAGNESIUM HYDROXIDE 30ML CUP PO (15:46)
[2018-08-18 20:38] LABS: ADD UMIC NO; UR ASCORBIC ACID NEGATIVE (NEGATIVE); UR BILIRUBIN (Dip) NEGATIVE (NEGATIVE); UR BLOOD (Dip) NEGATIVE (NEGATIVE); UR CLARITY CLEAR (CLEAR); UR COLOR YELLOW (YELLOW); UR GLUCOSE (Dip) NEGATIVE (NEGATIVE); UR KETONES (Dip) TRACE mg/dL (NEGATIVE); UR LEUKOCYTE ESTERASE (Dip) NEGATIVE Leu/ul (NEGATIVE); UR NITRITE (Dip) NEGATIVE (NEGATIVE); UR SPECIFIC GRAVITY (Dip) 1.012 (1.003-1.030); UR TOTAL PROTEIN (Dip) NEGATIVE (NEGATIVE); UR UROBILINOGEN (Dip) NEGATIVE (NEGATIVE)
[2018-08-19] MEDS: HYDROCODONE/APAP (5/325) TAB PO (00:45)
[2018-08-19] MEDS: SENNA TAB PO (09:12)
[2018-08-19] MEDS: morphine (ER) 15 MG TAB PO (09:13)
[2018-08-19] MEDS: HEPARIN (100 UNITS/ML) 5 ML SYG CATHETER (17:59)
== END 2018-08-19 18:27 | disposition home or self-care (01) | DRG 847 ==
LOC: MS1 09:26
DX: Z51.11 Encounter for antineoplastic chemotherapy (principal); C40.21 Malignant neoplasm of long bones of right lower limb; C78.00 Secondary malignant neoplasm of unspecified lung; G89.3 Neoplasm related pain (acute) (chronic); Z87.891 Personal history of nicotine dependence
CPT/HCPCS: 80048; 80053; 81001; 81003; 83735; 84100; 84560; 85025; 93971; J9130; J9209

== ENCOUNTER 2018-09-12 14:43 | Inpatient (IN) | payer OTHER ==
[2018-09-12] MEDS ORDERED: NITROGLYCERIN (SL) 0.4 MG TAB SL (16:30)
[2018-09-12] MEDS ORDERED: MAGNESIUM HYDROXIDE 30ML CUP PO (16:30)
[2018-09-12] MEDS ORDERED: hydrALAzine 20 MG INJ IV (16:30)
[2018-09-12] MEDS ORDERED: NACL 0.9% 3 ML SYG IV (16:30)
[2018-09-12] MEDS ORDERED: ALBUTEROL/IPRATROPIUM (NEB) 3 ML AMP HHN (16:30)
[2018-09-12] MEDS ORDERED: LORAZEPAM 2 MG INJ IV (16:30)
[2018-09-12] MEDS ORDERED: ACETAMINOPHEN 325 MG TAB PO (16:30)
[2018-09-12 16:39] LABS: ADD MAN DIFF? NO
[2018-09-12 16:41] LABS: ABNORMAL IP MESSAGE 1; BASOPHIL # 0.2 10^3/ul (0.0-0.1); EOSINOPHILS # 0.6 10^3/ul (0.0-0.5); EOSINOPHILS % 3.3 % (0.0-7.0); HEMATOCRIT 31.4 % (42.0-52.0); LYMPHOCYTES # 1.1 10^3/ul (0.8-2.9); LYMPHOCYTES % 6.4 % (15.0-51.0); MEAN CORPUSCULAR HEMOGLOBIN 29.9 pg (29.0-33.0); MEAN CORPUSCULAR HGB CONC 31.8 g/dl (32.0-37.0); MEAN PLATELET VOLUME 8.7 fl (7.4-10.4); MONOCYTE # 1.8 10^3/ul (0.3-0.9); MONOCYTES % 10.4 % (0.0-11.0); NEUTROPHIL # 13.8 10^3/ul (1.6-7.5); NEUTROPHILS % 78.4 % (39.0-77.0); PLATELET COUNT 376 10^3/UL (140-415); RED BLOOD COUNT 3.34 10^6/ul (4.70-6.10); RED CELL DISTRIBUTION WIDTH 17.2 % (11.5-14.5)
[2018-09-12 16:41] LABS: WHITE BLOOD COUNT 17.5 10^3/ul (4.8-10.8)
[2018-09-12 17:01] LABS: ALANINE AMINOTRANSFERASE 15 IU/L (13-69); ALBUMIN 4.1 g/dl (3.3-4.9); ALBUMIN/GLOBULIN RATIO 1.07; ALKALINE PHOSPHATASE 99 IU/L (42-121); ANION GAP 8 (5-13); ASPARTATE AMINO TRANSFERASE 26 IU/L (15-46); BILIRUBIN,INDIRECT 0.3 mg/dl (0-1.1); BILIRUBIN,TOTAL 0.3 mg/dl (0.2-1.3); BLOOD UREA NITROGEN 14 mg/dl (7-20); CALCIUM 8.9 mg/dl (8.4-10.2); CARBON DIOXIDE 28 mmol/L (21-31); CHLORIDE 105 mmol/L (97-110); CREATININE 1.04 mg/dl (0.61-1.24); Estimated GFR > 60 mL/min (>60); GLUCOSE 103 mg/dl (70-220); POTASSIUM 4.7 mmol/L (3.5-5.1); SODIUM 141 mmol/L (135-144); TOTAL PROTEIN 7.9 g/dl (6.1-8.1)
[2018-09-12 17:17] LABS: FREE T4 (FREE THYROXINE) 1.64 ng/dl (0.64-1.79)
[2018-09-12] MEDS: HYDROCODONE/APAP (5/325) TAB PO (18:38)
[2018-09-12 19:24] LABS: INR 0.91; PROTIME 12.4 Sec (11.9-14.9)
[2018-09-12 19:25] LABS: PARTIAL THROMBOPLASTIN TIME 33.9 Sec (23.0-35.0)
[2018-09-12] MEDS: IOHEXOL 14.3 MG(I)/ML (ADULT) BTL PO (21:42)
[2018-09-12] MEDS: HEPARIN 5,000 UNIT/1 ML VIAL SC (21:46)
[2018-09-13] MEDS: SOD CHLORIDE 0.9% 100 ML (00:29)
[2018-09-13] MEDS: IOHEXOL 300MG/ML 150 ML BTL ×2 (00:29→01:12)
[2018-09-13] MEDS: HYDROCODONE/APAP (5/325) TAB PO ×4 (00:41→20:40)
[2018-09-13] MEDS: morphine 2 MG INJ IV ×2 (04:33→13:06)
[2018-09-13 05:28] LABS: ADD MAN DIFF? NO
[2018-09-13 05:35] LABS: WHITE BLOOD COUNT 15.8 10^3/ul (4.8-10.8)
[2018-09-13 05:35] LABS: ABNORMAL IP MESSAGE 1; BASOPHIL # 0.2 10^3/ul (0.0-0.1); EOSINOPHILS # 0.6 10^3/ul (0.0-0.5); HEMATOCRIT 29.3 % (42.0-52.0); HEMOGLOBIN 9.3 g/dl (14.0-18.0); LYMPHOCYTES # 1.1 10^3/ul (0.8-2.9); MEAN CORPUSCULAR HEMOGLOBIN 29.8 pg (29.0-33.0); MEAN CORPUSCULAR HGB CONC 31.7 g/dl (32.0-37.0); MEAN CORPUSCULAR VOLUME 93.9 fl (82.0-101.0); MEAN PLATELET VOLUME 9.4 fl (7.4-10.4); MONOCYTE # 1.8 10^3/ul (0.3-0.9); MONOCYTES % 11.5 % (0.0-11.0); NEUTROPHILS % 76.1 % (39.0-77.0); PLATELET COUNT 385 10^3/UL (140-415); POSITIVE DIFF @See below; RED BLOOD COUNT 3.12 10^6/ul (4.70-6.10); RED CELL DISTRIBUTION WIDTH 17.2 % (11.5-14.5)
[2018-09-13 06:18] LABS: ANION GAP 8 (5-13); BLOOD UREA NITROGEN 11 mg/dl (7-20); CALCIUM 8.4 mg/dl (8.4-10.2); CARBON DIOXIDE 25 mmol/L (21-31); CHLORIDE 106 mmol/L (97-110); CHOL/HDL RATIO 5.2 RATIO; CHOLESTEROL 131 mg/dl (100-200); CREATININE 0.76 mg/dl (0.61-1.24); Estimated GFR > 60 mL/min (>60); GLUCOSE 89 mg/dl (70-220); HDL CHOLESTEROL 25 mg/dl (30-78); LDL CHOLESTEROL,CALCULATED 83 mg/dl; MAGNESIUM 1.8 mg/dl (1.7-2.5); PHOSPHORUS 3.3 mg/dl (2.5-4.9); POTASSIUM 4.1 mmol/L (3.5-5.1); SODIUM 139 mmol/L (135-144); TRIGLYCERIDES 113 mg/dl (0-149)
[2018-09-13 08:34] LABS: HEMOGLOBIN A1C 5.2 % (0-5.9)
[2018-09-13] MEDS: HEPARIN 5,000 UNIT/1 ML VIAL SC ×2 (09:03→22:29)
[2018-09-13] MEDS: FAMOTIDINE 20 MG INJ IV (09:04)
[2018-09-13] MEDS ORDERED: DEXAMETHASONE 4 MG/ML 20 MG in DEXTROSE 5% 50 ML IVPB (17:00)
[2018-09-13] MEDS ORDERED: MESNA IV (17:00)
[2018-09-13] MEDS ORDERED: DEXAMETHASONE 4 MG/ML 5 ML INJ IVPB (17:00)
[2018-09-13] MEDS ORDERED: IBUPROFEN 400 MG TAB PO (17:00)
[2018-09-13] MEDS ORDERED: SOD CHLORIDE 0.9% IV (17:00)
[2018-09-13] MEDS: HYDROmorphONE 1 MG/ML SYG IV ×2 (17:10→22:20)
[2018-09-13] MEDS: SOD CHLORIDE 0.45% 1,000 ML IV (17:21)
[2018-09-13] MEDS: APREPITANT 125 MG PO (22:14)
[2018-09-13] MEDS: ONDANSETRON INJ 16 MG in DEXTROSE 5% 50 ML IV ×2 (22:14→22:23)
[2018-09-13] MEDS: DOXORUBICIN IV (22:56)
[2018-09-13] MEDS: SOD CHLORIDE 0.9% IV ×3 (22:56→22:58)
[2018-09-13] MEDS: DEXTROSE 5% IV (22:57)
[2018-09-13] MEDS: DACARBAZINE IV (22:57)
[2018-09-13] MEDS: IFOSFAMIDE IV (22:57)
[2018-09-13] MEDS: MESNA IV (22:58)
[2018-09-13] MEDS: morphine (ER) 15 MG TAB PO (23:25)
[2018-09-14 05:23] LABS: ADD MAN DIFF? NO
[2018-09-14 05:38] LABS: ABNORMAL IP MESSAGE 1; BASOPHIL # 0.2 10^3/ul (0.0-0.1); BASOPHILS % 0.9 % (0.0-2.0); EOSINOPHILS # 0.5 10^3/ul (0.0-0.5); EOSINOPHILS % 3.3 % (0.0-7.0); HEMATOCRIT 29.1 % (42.0-52.0); HEMOGLOBIN 9.4 g/dl (14.0-18.0); LYMPHOCYTES # 1.3 10^3/ul (0.8-2.9); LYMPHOCYTES % 7.9 % (15.0-51.0); MEAN CORPUSCULAR HEMOGLOBIN 30.2 pg (29.0-33.0); MEAN CORPUSCULAR HGB CONC 32.3 g/dl (32.0-37.0); MEAN CORPUSCULAR VOLUME 93.6 fl (82.0-101.0); MEAN PLATELET VOLUME 9.3 fl (7.4-10.4); MONOCYTE # 1.9 10^3/ul (0.3-0.9); MONOCYTES % 11.8 % (0.0-11.0); NEUTROPHIL # 12.1 10^3/ul (1.6-7.5); NEUTROPHILS % 75.7 % (39.0-77.0); PLATELET COUNT 359 10^3/UL (140-415); POSITIVE DIFF @See below; RED BLOOD COUNT 3.11 10^6/ul (4.70-6.10); RED CELL DISTRIBUTION WIDTH 16.9 % (11.5-14.5)
[2018-09-14] MEDS: SOD CHLORIDE 0.45% 1,000 ML IV ×2 (05:50→17:52)
[2018-09-14 05:56] LABS: ANION GAP 6 (5-13); BLOOD UREA NITROGEN 9 mg/dl (7-20); CALCIUM 8.4 mg/dl (8.4-10.2); CARBON DIOXIDE 27 mmol/L (21-31); CHLORIDE 105 mmol/L (97-110); CREATININE 0.93 mg/dl (0.61-1.24); Estimated GFR > 60 mL/min (>60); GLUCOSE 93 mg/dl (70-220); POTASSIUM 3.8 mmol/L (3.5-5.1); SODIUM 138 mmol/L (135-144)
[2018-09-14] MEDS: HYDROmorphONE 1 MG/ML SYG IV ×2 (06:10→14:43)
[2018-09-14] MEDS: HYDROCODONE/APAP (5/325) TAB PO ×2 (08:59→18:46)
[2018-09-14] MEDS: FAMOTIDINE 20 MG INJ IV (09:00)
[2018-09-14] MEDS: HEPARIN 5,000 UNIT/1 ML VIAL SC ×2 (09:00→21:12)
[2018-09-14] MEDS: morphine (ER) 15 MG TAB PO ×2 (10:38→21:09)
[2018-09-14] MEDS ORDERED: APREPITANT 80 MG CAPSULE PO (17:00)
[2018-09-14] MEDS: APREPITANT 80 MG CAPSULE PO (18:12)
[2018-09-14 19:58] LABS: ADD UMIC NO; UR ASCORBIC ACID 40 mg/dL (NEGATIVE); UR BILIRUBIN (Dip) NEGATIVE (NEGATIVE); UR BLOOD (Dip) NEGATIVE (NEGATIVE); UR CLARITY CLEAR (CLEAR); UR COLOR YELLOW (YELLOW); UR GLUCOSE (Dip) NEGATIVE (NEGATIVE); UR KETONES (Dip) 1+ mg/dL (NEGATIVE); UR LEUKOCYTE ESTERASE (Dip) NEGATIVE Leu/ul (NEGATIVE); UR NITRITE (Dip) NEGATIVE (NEGATIVE); UR SPECIFIC GRAVITY (Dip) 1.018 (1.003-1.030); UR TOTAL PROTEIN (Dip) NEGATIVE (NEGATIVE); UR UROBILINOGEN (Dip) NEGATIVE (NEGATIVE)
[2018-09-14] MEDS: MESNA IV (23:08)
[2018-09-14] MEDS: SOD CHLORIDE 0.9% IV (23:08)
[2018-09-15] MEDS: ONDANSETRON INJ 16 MG in DEXTROSE 5% 50 ML IV (03:02)
[2018-09-15] MEDS: IFOSFAMIDE IV (03:18)
[2018-09-15] MEDS: SOD CHLORIDE 0.9% IV ×2 (03:18→03:20)
[2018-09-15] MEDS: DEXTROSE 5% IV (03:19)
[2018-09-15] MEDS: DACARBAZINE IV (03:19)
[2018-09-15] MEDS: DOXORUBICIN IV (03:20)
[2018-09-15] MEDS: HYDROmorphONE 1 MG/ML SYG IV (04:09)
[2018-09-15 05:32] LABS: ADD MAN DIFF? NO
[2018-09-15 05:34] LABS: ABNORMAL IP MESSAGE 1; BASOPHIL # 0.2 10^3/ul (0.0-0.1); BASOPHILS % 0.9 % (0.0-2.0); EOSINOPHILS # 0.5 10^3/ul (0.0-0.5); EOSINOPHILS % 2.5 % (0.0-7.0); HEMATOCRIT 29.7 % (42.0-52.0); HEMOGLOBIN 9.4 g/dl (14.0-18.0); LYMPHOCYTES # 1.2 10^3/ul (0.8-2.9); LYMPHOCYTES % 6.5 % (15.0-51.0); MEAN CORPUSCULAR HEMOGLOBIN 29.6 pg (29.0-33.0); MEAN CORPUSCULAR HGB CONC 31.6 g/dl (32.0-37.0); MEAN CORPUSCULAR VOLUME 93.4 fl (82.0-101.0); MEAN PLATELET VOLUME 9.6 fl (7.4-10.4); MONOCYTE # 2.1 10^3/ul (0.3-0.9); MONOCYTES % 11.7 % (0.0-11.0); NEUTROPHIL # 14.2 10^3/ul (1.6-7.5); NEUTROPHILS % 77.8 % (39.0-77.0); PLATELET COUNT 337 10^3/UL (140-415); POSITIVE DIFF @See below; RED BLOOD COUNT 3.18 10^6/ul (4.70-6.10); RED CELL DISTRIBUTION WIDTH 16.8 % (11.5-14.5)
[2018-09-15 05:34] LABS: WHITE BLOOD COUNT 18.2 10^3/ul (4.8-10.8)
[2018-09-15 06:03] LABS: MAGNESIUM 1.8 mg/dl (1.7-2.5)
[2018-09-15 06:03] LABS: PHOSPHORUS 3.5 mg/dl (2.5-4.9)
[2018-09-15 06:08] LABS: ADD UMIC NO; UR ASCORBIC ACID 20 mg/dL (NEGATIVE); UR BILIRUBIN (Dip) NEGATIVE (NEGATIVE); UR BLOOD (Dip) NEGATIVE (NEGATIVE); UR CLARITY CLEAR (CLEAR); UR COLOR YELLOW (YELLOW); UR GLUCOSE (Dip) 1+ mg/dL (NEGATIVE); UR KETONES (Dip) 1+ mg/dL (NEGATIVE); UR LEUKOCYTE ESTERASE (Dip) NEGATIVE Leu/ul (NEGATIVE); UR NITRITE (Dip) NEGATIVE (NEGATIVE); UR SPECIFIC GRAVITY (Dip) 1.006 (1.003-1.030); UR TOTAL PROTEIN (Dip) NEGATIVE (NEGATIVE); UR UROBILINOGEN (Dip) NEGATIVE (NEGATIVE)
[2018-09-15 06:49] LABS: ANION GAP 8 (5-13); BLOOD UREA NITROGEN 7 mg/dl (7-20); CALCIUM 8.3 mg/dl (8.4-10.2); CARBON DIOXIDE 23 mmol/L (21-31); CHLORIDE 108 mmol/L (97-110); CREATININE 0.79 mg/dl (0.61-1.24); Estimated GFR > 60 mL/min (>60); GLUCOSE 90 mg/dl (70-220); POTASSIUM 3.8 mmol/L (3.5-5.1); SODIUM 139 mmol/L (135-144)
[2018-09-15] MEDS: SOD CHLORIDE 0.45% 1,000 ML IV ×2 (08:30→22:10)
[2018-09-15] MEDS: morphine (ER) 15 MG TAB PO ×2 (09:19→22:10)
[2018-09-15] MEDS: FAMOTIDINE 20 MG INJ IV (09:19)
[2018-09-15] MEDS: HEPARIN 5,000 UNIT/1 ML VIAL SC ×2 (09:19→22:14)
[2018-09-15] MEDS: HYDROCODONE/APAP (5/325) TAB PO (18:11)
[2018-09-15] MEDS: METOPROLOL (XL) 50 MG TAB PO (19:00)
[2018-09-15] MEDS: APREPITANT 80 MG CAPSULE PO (19:01)
[2018-09-16] MEDS: MESNA IV (00:17)
[2018-09-16] MEDS: SOD CHLORIDE 0.9% IV ×3 (00:17→05:58)
[2018-09-16] MEDS: HYDROCODONE/APAP (5/325) TAB PO ×3 (04:12→18:36)
[2018-09-16] MEDS: ONDANSETRON INJ 16 MG in DEXTROSE 5% 50 ML IV (05:16)
[2018-09-16 05:31] LABS: ADD MAN DIFF? NO
[2018-09-16 05:41] LABS: ABNORMAL IP MESSAGE 1; BASOPHIL # 0.1 10^3/ul (0.0-0.1); BASOPHILS % 0.6 % (0.0-2.0); EOSINOPHILS # 0.4 10^3/ul (0.0-0.5); EOSINOPHILS % 1.9 % (0.0-7.0); HEMATOCRIT 28.8 % (42.0-52.0); HEMOGLOBIN 9.1 g/dl (14.0-18.0); LYMPHOCYTES # 0.8 10^3/ul (0.8-2.9); LYMPHOCYTES % 4.3 % (15.0-51.0); MEAN CORPUSCULAR HEMOGLOBIN 29.4 pg (29.0-33.0); MEAN CORPUSCULAR HGB CONC 31.6 g/dl (32.0-37.0); MEAN CORPUSCULAR VOLUME 92.9 fl (82.0-101.0); MEAN PLATELET VOLUME 9.6 fl (7.4-10.4); MONOCYTES % 10.9 % (0.0-11.0); NEUTROPHIL # 14.7 10^3/ul (1.6-7.5); NEUTROPHILS % 81.7 % (39.0-77.0); PLATELET COUNT 298 10^3/UL (140-415); POSITIVE DIFF @See below; RED CELL DISTRIBUTION WIDTH 16.9 % (11.5-14.5)
[2018-09-16] MEDS: IOHEXOL 300MG/ML 150 ML BTL (05:49)
[2018-09-16] MEDS: SOD CHLORIDE 0.9% 100 ML (05:49)
[2018-09-16 05:54] LABS: PHOSPHORUS 3.1 mg/dl (2.5-4.9)
[2018-09-16 05:54] LABS: MAGNESIUM 1.8 mg/dl (1.7-2.5)
[2018-09-16] MEDS: DACARBAZINE IV (05:55)
[2018-09-16] MEDS: DEXTROSE 5% IV (05:55)
[2018-09-16] MEDS: DOXORUBICIN IV (05:56)
[2018-09-16] MEDS: IFOSFAMIDE IV (05:58)
[2018-09-16 06:03] LABS: ANION GAP 7 (5-13); BLOOD UREA NITROGEN 10 mg/dl (7-20); CALCIUM 8.1 mg/dl (8.4-10.2); CARBON DIOXIDE 22 mmol/L (21-31); CHLORIDE 108 mmol/L (97-110); CREATININE 0.78 mg/dl (0.61-1.24); Estimated GFR > 60 mL/min (>60); GLUCOSE 84 mg/dl (70-220); POTASSIUM 3.6 mmol/L (3.5-5.1); SODIUM 137 mmol/L (135-144)
[2018-09-16 07:23] LABS: ADD UMIC NO; UR ASCORBIC ACID NEGATIVE (NEGATIVE); UR BILIRUBIN (Dip) NEGATIVE (NEGATIVE); UR BLOOD (Dip) NEGATIVE (NEGATIVE); UR CLARITY CLEAR (CLEAR); UR COLOR YELLOW (YELLOW); UR GLUCOSE (Dip) 1+ mg/dL (NEGATIVE); UR KETONES (Dip) 1+ mg/dL (NEGATIVE); UR LEUKOCYTE ESTERASE (Dip) NEGATIVE Leu/ul (NEGATIVE); UR NITRITE (Dip) NEGATIVE (NEGATIVE); UR SPECIFIC GRAVITY (Dip) 1.008 (1.003-1.030); UR TOTAL PROTEIN (Dip) NEGATIVE (NEGATIVE); UR UROBILINOGEN (Dip) NEGATIVE (NEGATIVE)
[2018-09-16] MEDS: HYDROmorphONE 1 MG/ML SYG IV ×2 (10:05→14:32)
[2018-09-16] MEDS: morphine (ER) 15 MG TAB PO ×3 (10:08→22:05)
[2018-09-16] MEDS: METOPROLOL (XL) 50 MG TAB PO (10:08)
[2018-09-16] MEDS: FAMOTIDINE 20 MG INJ IV (10:09)
[2018-09-16] MEDS: HEPARIN 5,000 UNIT/1 ML VIAL SC ×2 (10:11→21:06)
[2018-09-16] MEDS: SOD CHLORIDE 0.45% 1,000 ML IV (10:58)
[2018-09-16] MEDS: ONDANSETRON 4 MG INJ IV (16:35)
[2018-09-16] MEDS: PROCHLORPERAZINE 10 MG INJ IV (20:59)
[2018-09-16] MEDS: hydrALAzine 20 MG INJ IV (22:05)
[2018-09-17] MEDS: HYDROmorphONE 1 MG/ML SYG IV ×5 (00:14→22:15)
[2018-09-17] MEDS: HYDROCODONE/APAP (5/325) TAB PO ×3 (02:34→16:09)
[2018-09-17] MEDS: ONDANSETRON INJ 16 MG in DEXTROSE 5% 50 ML IV (02:43)
[2018-09-17] MEDS: SOD CHLORIDE 0.45% 1,000 ML IV ×2 (02:43→13:06)
[2018-09-17] MEDS: MESNA IV (03:07)
[2018-09-17] MEDS: SOD CHLORIDE 0.9% IV (03:07)
[2018-09-17] MEDS: DOCUSATE SODIUM 100 MG CAP PO ×2 (06:09→08:12)
[2018-09-17 06:27] LABS: ADD UMIC NO; UR ASCORBIC ACID NEGATIVE (NEGATIVE); UR BILIRUBIN (Dip) NEGATIVE (NEGATIVE); UR BLOOD (Dip) NEGATIVE (NEGATIVE); UR CLARITY CLEAR (CLEAR); UR COLOR STRAW (YELLOW); UR GLUCOSE (Dip) 1+ mg/dL (NEGATIVE); UR KETONES (Dip) 1+ mg/dL (NEGATIVE); UR LEUKOCYTE ESTERASE (Dip) NEGATIVE Leu/ul (NEGATIVE); UR NITRITE (Dip) NEGATIVE (NEGATIVE); UR SPECIFIC GRAVITY (Dip) 1.008 (1.003-1.030); UR TOTAL PROTEIN (Dip) NEGATIVE (NEGATIVE); UR UROBILINOGEN (Dip) NEGATIVE (NEGATIVE)
[2018-09-17 07:13] LABS: ADD MAN DIFF? NO
[2018-09-17 07:17] LABS: ABNORMAL IP MESSAGE 1; BASOPHIL # 0.1 10^3/ul (0.0-0.1); BASOPHILS % 0.3 % (0.0-2.0); EOSINOPHILS # 0.2 10^3/ul (0.0-0.5); EOSINOPHILS % 0.9 % (0.0-7.0); HEMATOCRIT 29.4 % (42.0-52.0); HEMOGLOBIN 9.8 g/dl (14.0-18.0); LYMPHOCYTES # 0.7 10^3/ul (0.8-2.9); LYMPHOCYTES % 3.8 % (15.0-51.0); MEAN CORPUSCULAR HEMOGLOBIN 30.1 pg (29.0-33.0); MEAN CORPUSCULAR HGB CONC 33.3 g/dl (32.0-37.0); MEAN CORPUSCULAR VOLUME 90.2 fl (82.0-101.0); MEAN PLATELET VOLUME 9.5 fl (7.4-10.4); MONOCYTE # 1.5 10^3/ul (0.3-0.9); MONOCYTES % 8.5 % (0.0-11.0); NEUTROPHIL # 15.3 10^3/ul (1.6-7.5); NEUTROPHILS % 85.9 % (39.0-77.0); PLATELET COUNT 332 10^3/UL (140-415); POSITIVE DIFF @See below; RED BLOOD COUNT 3.26 10^6/ul (4.70-6.10); RED CELL DISTRIBUTION WIDTH 16.3 % (11.5-14.5)
[2018-09-17 07:17] LABS: WHITE BLOOD COUNT 17.8 10^3/ul (4.8-10.8)
[2018-09-17 07:37] LABS: ANION GAP 9 (5-13); BLOOD UREA NITROGEN 12 mg/dl (7-20); CALCIUM 8.3 mg/dl (8.4-10.2); CARBON DIOXIDE 19 mmol/L (21-31); CHLORIDE 107 mmol/L (97-110); CREATININE 0.75 mg/dl (0.61-1.24); Estimated GFR > 60 mL/min (>60); GLUCOSE 86 mg/dl (70-220); POTASSIUM 3.8 mmol/L (3.5-5.1); SODIUM 135 mmol/L (135-144)
[2018-09-17] MEDS: FAMOTIDINE 20 MG INJ IV (08:11)
[2018-09-17] MEDS: morphine (ER) 15 MG TAB PO ×2 (08:11→21:55)
[2018-09-17] MEDS: METOPROLOL (XL) 50 MG TAB PO (08:12)
[2018-09-17] MEDS: HEPARIN 5,000 UNIT/1 ML VIAL SC ×2 (08:14→21:57)
[2018-09-17] MEDS: hydrALAzine 20 MG INJ IV (08:24)
[2018-09-17] MEDS: PROCHLORPERAZINE 10 MG INJ IV ×2 (09:05→16:32)
[2018-09-17] MEDS: NIFEdipine (XL) 90 MG TAB PO (09:06)
[2018-09-18 05:13] LABS: ABNORMAL IP MESSAGE 1; ADD MAN DIFF? NO; BASOPHIL # 0.1 10^3/ul (0.0-0.1); BASOPHILS % 0.4 % (0.0-2.0); EOSINOPHILS # 0.2 10^3/ul (0.0-0.5); EOSINOPHILS % 1.6 % (0.0-7.0); HEMATOCRIT 29.5 % (42.0-52.0); HEMOGLOBIN 9.7 g/dl (14.0-18.0); LYMPHOCYTES # 0.5 10^3/ul (0.8-2.9); LYMPHOCYTES % 3.9 % (15.0-51.0); MEAN CORPUSCULAR HEMOGLOBIN 29.9 pg (29.0-33.0); MEAN CORPUSCULAR HGB CONC 32.9 g/dl (32.0-37.0); MEAN PLATELET VOLUME 9.2 fl (7.4-10.4); MONOCYTE # 0.8 10^3/ul (0.3-0.9); MONOCYTES % 5.6 % (0.0-11.0); NEUTROPHIL # 11.7 10^3/ul (1.6-7.5); NEUTROPHILS % 87.9 % (39.0-77.0); PLATELET COUNT 325 10^3/UL (140-415); POSITIVE DIFF @See below; RED BLOOD COUNT 3.24 10^6/ul (4.70-6.10); RED CELL DISTRIBUTION WIDTH 16.1 % (11.5-14.5)
[2018-09-18 05:13] LABS: WHITE BLOOD COUNT 13.4 10^3/ul (4.8-10.8)
[2018-09-18 05:31] LABS: ANION GAP 9 (5-13); BLOOD UREA NITROGEN 15 mg/dl (7-20); CALCIUM 8.9 mg/dl (8.4-10.2); CARBON DIOXIDE 19 mmol/L (21-31); CHLORIDE 107 mmol/L (97-110); CREATININE 0.85 mg/dl (0.61-1.24); Estimated GFR > 60 mL/min (>60); GLUCOSE 94 mg/dl (70-220); POTASSIUM 3.6 mmol/L (3.5-5.1); SODIUM 135 mmol/L (135-144)
[2018-09-18] MEDS: NIFEdipine (XL) 90 MG TAB PO (09:08)
[2018-09-18] MEDS: FAMOTIDINE 20 MG INJ IV (09:09)
[2018-09-18] MEDS: METOPROLOL (XL) 50 MG TAB PO (09:09)
[2018-09-18] MEDS: morphine (ER) 15 MG TAB PO ×2 (09:14→20:33)
[2018-09-18] MEDS: HEPARIN 5,000 UNIT/1 ML VIAL SC ×2 (09:15→20:35)
[2018-09-18] MEDS: HYDROCODONE/APAP (5/325) TAB PO ×2 (13:26→22:03)
[2018-09-19 04:59] LABS: ADD MAN DIFF? NO
[2018-09-19 05:05] LABS: ABNORMAL IP MESSAGE 1; BASOPHILS % 0.5 % (0.0-2.0); EOSINOPHILS # 0.2 10^3/ul (0.0-0.5); EOSINOPHILS % 2.7 % (0.0-7.0); HEMATOCRIT 28.2 % (42.0-52.0); HEMOGLOBIN 9.4 g/dl (14.0-18.0); LYMPHOCYTES # 0.5 10^3/ul (0.8-2.9); LYMPHOCYTES % 6.1 % (15.0-51.0); MEAN CORPUSCULAR HEMOGLOBIN 30.1 pg (29.0-33.0); MEAN CORPUSCULAR HGB CONC 33.3 g/dl (32.0-37.0); MEAN CORPUSCULAR VOLUME 90.4 fl (82.0-101.0); MEAN PLATELET VOLUME 9.2 fl (7.4-10.4); MONOCYTE # 0.3 10^3/ul (0.3-0.9); MONOCYTES % 3.1 % (0.0-11.0); NEUTROPHIL # 7.1 10^3/ul (1.6-7.5); NEUTROPHILS % 87.1 % (39.0-77.0); PLATELET COUNT 281 10^3/UL (140-415); POSITIVE DIFF @See below; RED BLOOD COUNT 3.12 10^6/ul (4.70-6.10)
[2018-09-19 05:05] LABS: WHITE BLOOD COUNT 8.1 10^3/ul (4.8-10.8)
[2018-09-19 05:28] LABS: ANION GAP 8 (5-13); BLOOD UREA NITROGEN 17 mg/dl (7-20); CALCIUM 8.6 mg/dl (8.4-10.2); CARBON DIOXIDE 20 mmol/L (21-31); CHLORIDE 108 mmol/L (97-110); CREATININE 0.92 mg/dl (0.61-1.24); Estimated GFR > 60 mL/min (>60); GLUCOSE 133 mg/dl (70-220); POTASSIUM 3.4 mmol/L (3.5-5.1); SODIUM 136 mmol/L (135-144)
[2018-09-19] MEDS: NIFEdipine (XL) 90 MG TAB PO (08:01)
[2018-09-19] MEDS: DOCUSATE SODIUM 100 MG CAP PO (08:01)
[2018-09-19] MEDS: METOPROLOL (XL) 50 MG TAB PO (08:02)
[2018-09-19] MEDS: HYDROCODONE/APAP (5/325) TAB PO ×2 (08:02→09:57)
[2018-09-19] MEDS: morphine (ER) 15 MG TAB PO (08:03)
[2018-09-19] MEDS: FAMOTIDINE 20 MG INJ IV (09:58)
[2018-09-19] MEDS: HEPARIN 5,000 UNIT/1 ML VIAL SC (10:00)
[2018-09-19] MEDS: POTASSIUM CHLORIDE 20 MEQ POWDER FOR ORAL SOLN PO (11:34)
[2018-09-19] MEDS: HEPARIN (100 UNITS/ML) 5 ML SYG CATHETER (15:12)
[2018-09-20] MEDS ORDERED: FAMOTIDINE 20 MG TAB PO (09:00)
== END 2018-09-19 15:40 | disposition home or self-care (01) | DRG 847 ==
LOC: MS1 14:43
PROC: 3E03305 Introduction of Other Antineoplastic into Peripheral Vein, Percutaneous Approach (ICD-10-PCS; principal; 2018-09-13)
DX: Z51.11 Encounter for antineoplastic chemotherapy (principal); C78.00 Secondary malignant neoplasm of unspecified lung; C76.51 Malignant neoplasm of right lower limb; D64.9 Anemia, unspecified
CPT/HCPCS: 70491; 71260; 74177; 80048; 80053; 80061; 81003; 83036; 83735; 84100; 84439; 84443; 85025; 85610; 85730; 87081; 87086; 93970; 93971; 97116; 97162; 97530; J9130; J9209